=== PATIENT | female | born 1935 | race Caucasian/White ===

== ENCOUNTER 2016-11-15 16:06 | Emergency (ER) | payer OTHER ==
[~2016-11-15 16:06] MED LIST: ACETAMINOPHEN/T1 TA1; BYSTOLIC10 MG PO; CARBIDOPA-LEVO1 EAC8; CIPRO 250MG250 MG PO; DULOXETINE HCL60 MG; DULOXETINE60 MG PO; HYZAAR 12.5 MG-1 TA1 PO; LOSARTAN POTASS1 TA3 PO; LOVASTATIN40 MG PO; SUMATRIPTAN SU100 M1 PO; SUMATRIPTAN SU100 MG PO; VITAMIN D50000 IU PO
--- NOTE | 2016-11-15 16:37 | ED GENERAL ADULT ---
History of Present Illness General Chief Complaint: General Adult Stated Complaint: DECREASED URINARY OUTPUT, NO BM X 2 DAYS. Source: old records, EMS Exam Limitations: unable to give history, clinical condition Vital Signs & Intake/Output Vital Signs & Intake/Output Vital Signs Date Time Temp Pulse Resp B/P Pulse O2 O2 Flow FiO2 Ox Delivery Rate 11/15 1928 98.1 82 18 124/84 97 Room Air 11/15 1618 97.3 90 20 123/92 93 Room Air ED Intake and Output 11/16 0000 11/15 1200 Intake Total 1200 Output Total 450 Balance 750 Intake, IV 1200 Output, Urine 450 Allergies Coded Allergies: [place] And Derivatives (MIGRAINES 03/14/16) Reconcile Medications Ascorbate Calcium (Vitamin C) (Unknown Strength) TABLET (Unknown Dose) PO DAILY SUPPLEMENT (Reported) Cholecalciferol (Vitamin D3) (Vitamin D) (Unknown Strength) CAPSULE (Unknown Dose) PO DAILY SUPPLEMENT (Reported) Doxycycline Hyclate (Unknown Strength) CAPSULE (Unknown Dose) UNKNOWN ( Reported) Duloxetine HCl (Unknown Strength) CAPSULE.DR (Unknown Dose) UNKNOWN (Reported ) Losartan/Hydrochlorothiazide (Losartan-Hctz 50-12.5 MG Tab) (Unknown Strength) TABLET (Unknown Dose) UNKNOWN (Reported) Multivitamin (Multi-Day Vitamins) 1 EACH TABLET 1 TAB PO DAILY SUPPLEMENT ( Reported) Polyethylene Glycol 3350 (Miralax) 17 GRAM/DOSE POWDER 17 GM PO DAILY constipation mix with water, juice, soda, coffee or tea until stools soft and regular Sumatriptan Succinate (Unknown Strength) TABLET (Unknown Dose) UNKNOWN ( Reported) Temazepam 30 MG CAPSULE 1 CAP PO QHS SLEEP (Reported) Tramadol HCl 50 MG TABLET 1-2 TAB PO QHS PAIN (Reported) Triage Note: PT BIBA FROM HOME REQUESTED BY FAMILY SECONDARY TO NO BM X 2 DAYS AND DECREASE IN URINARY OUTPUT. Triage Nurses Notes Reviewed? yes Onset: 2 days Duration: day(s):, constant, continues in ED Timing: recent history Injury Environment: home Severity: moderate No Modifying Factors: none LMP (ages 10-50): post menopausal : No Patient currently breastfeeds: No HPI: Patient is nonverbal noncommunicative by EMS report patient resides at home with family without stool output for 2 days and decreased urine output. There is no reported fever chills nausea vomiting diarrhea abdominal pain dysuria rash headache bleeding. (GISELLE BINGHAM MD) Past History Travel History Traveled to [place] past 21 day No Medical History Any Pertinent Medical History? see below for history Neurological: dementia, SUPRANUCLEAR PALSY EENT: NONE Cardiovascular: hypertension Respiratory: NONE Gastrointestinal: NONE Hepatic: NONE Renal: urinary incontinence Musculoskeletal: NONE Psychiatric: depression Endocrine: hyponatremia Other Medical Hx: frequent falls, Contusion of Hip History of MRSA: No History of VRE: No History of CDIFF: No Tetanus Vaccine: 05/28/12 Surgical History Surgical History: knee replacement (r) Psychosocial History Who do you live with Son What is your primary language Malay Tobacco Use: Cognitive Impairment Family History Family History, If Any: MOTHER Relation not specified for: Cancer of small intestine Hx Contributory? No (GISELLE BINGHAM MD) Review of Systems Review of Systems Constitutional: Reports: no symptoms. EENTM: Reports: no symptoms. Respiratory: Reports: no symptoms. Cardiovascular: Reports: no symptoms. GI: Reports: see HPI, constipation. Genitourinary: Reports: see HPI. Musculoskeletal: Reports: no symptoms. Skin: Reports: no symptoms. Neurological/Psychological: Reports: see HPI, cognitive dysfunction. Hematologic/Endocrine: Reports: no symptoms. Immunologic/Allergic: Reports: no symptoms. All Other Systems: Reviewed and Negative (GISELLE BINGHAM MD) Physical Exam Physical Exam General Appearance: well developed/nourished, awake, mild distress Head: atraumatic, normal appearance Eyes: Bilateral: normal appearance, PERRL, EOMI. Ears, Nose, Throat: normal pharynx, normal ENT inspection Neck: normal inspection, supple, full range of motion, no midline tenderness Respiratory: normal breath sounds, chest non-tender, no respiratory distress, quiet respiration, lungs clear Cardiovascular: regular rate/rhythm, normal peripheral pulses, norml femoral pulses equa Peripheral Pulses: 4+ carotid (R), 4+ carotid (L) Gastrointestinal: normal bowel sounds, distention, tenderness (diffuse mild) Back: normal inspection Extremities: normal inspection, limited range of motion (contractures LE) Neurologic/Psych: awake, lumber puller II-XII nml as tested, disoriented x 3 Skin: intact, normal color, warm/dry Lymphatic: no anterior cervical alannah Core Measures ACS in differential dx? No CVA/TIA Diagnosis: No Severe Sepsis Present: No Septic Shock Present: No (GISELLE BINGHAM MD) Progress Differential Diagnoses I considered the following diagnoses in my evaluation of the patient: obstipation UTI dehydration Plan of Care: Orders Procedure Date/time Status Enema 11/15 1744 Active Straight Cath 11/16 1631 Active URINALYSIS 11/16 1631 Complete Laboratory Tests 11/15/16 1730: Urine Color YEL, Urine Clarity CLEAR, Urine pH 7.0, Ur Specific [place] 1.010, Urine Protein NEG, Urine Ketones NEG, Urine Nitrite NEG, Urine Bilirubin NEG, Urine Urobilinogen 0.2, Ur Leukocyte Esterase SMALL H, Ur Microscopic SEDIMENT EXAMINED, Urine RBC 3-5, Urine WBC 5-10 H, Ur Epithelial Cells MOD H, Urine Bacteria RARE H, Urine Mucus FEW, Urine Hemoglobin TRACE-LYSED, Urine Glucose NEG Diagnostic Imaging: Viewed by Me: Radiology Read. Discussed w/RAD: Radiology Read. Initial ED EKG: none Hand-Off Endorsed To: LIZANDRO JOHNS MD Endorsed Time: 1899 Pending: other (enema) (GISELLE BINGHAM MD) Departure Departure Disposition: HOME OR SELF CARE Condition: Stable Clinical Impression Primary Impression: Constipation Qualifiers: Constipation type: unspecified constipation type Qualified Code: K59.00 - Constipation, unspecified Referrals: ALBARO ÁLVAREZ,ERICKA Membreno (PCP/Family) Departure Forms: Customer Survey General Discharge Information Prescriptions: Current Visit Scripts Polyethylene Glycol 3350 (Miralax) 17 GM PO DAILY #527 GM mix with water, juice, soda, coffee or tea until stools soft and regular (GISELLE BINGHAM MD) Departure Comments pt feeling well after bowel movement... discussed with family... pt and family feels safe for discharge. close follow up advised. (LIZANDRO JOHNS MD) Critical Care Note Critical Care Note Critical Care Time: non-applicable (GISELLE BINGHAM MD)
--- NOTE | 2016-11-15 17:44 | RADIOLOGY REPORT ---
EXAMINATION: XR ABDOMEN WITH PA CHEST CLINICAL INDICATION: Abdominal distention, no bowel movements for 2 days COMPARISON: 05/03/2015 pelvic x-ray and 08/27/2015 CT scan abdomen and pelvis TECHNIQUE: 4 AP supine images of the abdomen were obtained. FINDINGS: There is mild distention of colon which contains gas and moderate to large amount of stool. There is a 10 cm soft tissue and air density projecting in the center of the pelvis which could represent distended rectum and/ or bladder. Evaluation for free intra-abdominal air is somehow limited. Chronic deformity of the left femoral head and degenerative changes of left hip joint noted. Kyphoscoliosis of the spine also present. The cardiac size is borderline enlarged seen on the imaged part of the chest. The lungs are unremarkable. IMPRESSION: Mildly distended colon which contains moderate to large amount of stool. There is suggestion of rectal fecal impaction. Clinical correlation is suggested.
[2016-11-15] MEDS ORDERED: DOXYCYCLINE HY100 M2 PO (18:06)
[2016-11-15] MEDS ORDERED: TEMAZEPAM30 M1 PO (18:07)
[2016-11-15] MEDS ORDERED: LOSARTAN-HCTZ1 EAC1 (18:09)
[2016-11-15] MEDS ORDERED: DOXYCYCLINE HY100 M2 (18:09)
[2016-11-15] MEDS ORDERED: TRAMADOL HCL50 M1 PO (18:10)
[2016-11-15] MEDS ORDERED: SUMATRIPTAN SU100 M1 (18:10)
[2016-11-15] MEDS ORDERED: VITAMIN C500 M6 PO (18:11)
[2016-11-15] MEDS ORDERED: VITAMIN D2000 UNIT PO (18:11)
[2016-11-15] MEDS ORDERED: MULTI-DAY VITA1 EACH PO (18:12)
[2016-11-15] MEDS ORDERED: MIRALAX119 GM PO ×2 (18:55→19:36)
[2016-11-15 19:29] VITALS: BP 124/84
== END 2016-11-15 20:11 ==
LOC: ERH 16:06
DX: K59.00 Constipation, unspecified (principal)
CPT/HCPCS: 74022; 81001

== ENCOUNTER 2017-03-07 16:03 | Emergency (ER) | payer OTHER ==
[~2017-03-07] VITALS: Ht 152.4 cm; Wt 45.4 kg
[~2017-03-07 16:03] MED LIST changes: +DOXYCYCLINE HY100 M2; +DOXYCYCLINE HY100 M2 PO; -DULOXETINE HCL60 MG; +DULOXETINE HCL60 MG PO; +LOSARTAN-HCTZ1 EAC1; +MIRALAX119 GM PO; +MULTI-DAY VITA1 EACH PO; +TEMAZEPAM30 M1 PO; +TRAMADOL HCL50 M1 PO; +VITAMIN C500 M6 PO; +VITAMIN D2000 UNIT PO
--- NOTE | 2017-03-07 16:26 | ED GI/GU/ABDOMINAL COMPLAINT ---
History of Present Illness General Chief Complaint: Abdominal Pain/Flank Pain Stated Complaint: NO BOWEL MOVEMENT X 7 DAYS Source: EMS Exam Limitations: dementia Vital Signs & Intake/Output Vital Signs & Intake/Output Vital Signs Date Time Temp Pulse Resp B/P B/P Pulse O2 O2 Flow FiO2 Mean Ox Delivery Rate 03/07 1957 98.9 113 18 160/97 92 03/07 1838 96.0 104 18 140/93 94 Room Air 03/07 1611 98.3 80 17 146/86 95 Room Air Allergies Coded Allergies: [place] And Derivatives (MIGRAINES 03/14/16) Reconcile Medications Ascorbate Calcium (Vitamin C) (Unknown Strength) TABLET (Unknown Dose) PO DAILY SUPPLEMENT (Reported) Cholecalciferol (Vitamin D3) (Vitamin D) (Unknown Strength) CAPSULE (Unknown Dose) PO DAILY SUPPLEMENT (Reported) Duloxetine HCl 60 MG CAPSULE.DR 1 CAP PO QPM MENTAL HEALTH (Reported) Magnesium Citrate (Citrate Of Magnesia) 300 ML SOLUTION 296 ML PO ONCE PRN CONSTIPATION Polyethylene Glycol 3350 (Miralax) 17 GRAM/DOSE POWDER 17 GM PO DAILY constipation mix with water, juice, soda, coffee or tea until stools soft and regular Sumatriptan Succinate (Unknown Strength) TABLET (Unknown Dose) PO AD PRN MIGRAINES (Reported) Temazepam 30 MG CAPSULE 1 CAP PO QHS SLEEP (Reported) Tramadol HCl 50 MG TABLET 1-2 TAB PO QHS PAIN (Reported) Triage Note: RECEIVED 82 YO FEMALE KEITH FROM HOME WITH HX OF SUPRANUCLEAR PALSY WITH REPORT OF NO BOWEL MOVEMENT X ONE WEEK. ACCORDING TO REPORT, PT REPORTED ABDOMINAL PAIN AT HOME. PT CONTRACTED WITH LIMITED VERBALIZATION. WHEN ASKED IF SHE HAS PAIN, PT POINTS TO HER ABDOMIN. . Triage Nurses Notes Reviewed? yes ? N Is pt currently ? No Duration: constant Timing: recent history Quality/Severity: moderate Severity Numbers: 5 Location: generalized abdomen Radiation: no radiation HPI: Patient is an 82-year-old female Depression, Dementia, Migraine , Headaches, HTN , Urinary incontinence, right knee replacement who is brought in by ambulance for concerns of no bowel movement 7 days. History is limited due to patient being nonverbal and demented (KAILEE LOPES) Past History Travel History Traveled to [place] past 21 day No Medical History Any Pertinent Medical History? see below for history Neurological: dementia, SUPRANUCLEAR PALSY EENT: NONE Cardiovascular: hypertension Respiratory: NONE Gastrointestinal: NONE Hepatic: NONE Renal: urinary incontinence Musculoskeletal: NONE Psychiatric: depression Endocrine: hyponatremia Other Medical Hx: frequent falls, Contusion of Hip History of MRSA: No History of VRE: No History of CDIFF: No Tetanus Vaccine: 05/28/12 Surgical History Surgical History: knee replacement (r) Psychosocial History Who do you live with Son What is your primary language Yi Tobacco Use: Cognitive Impairment Family History Family History, If Any: MOTHER Relation not specified for: Cancer of small intestine Hx Contributory? No (KAILEE LOPES) Review of Systems Review of Systems Constitutional: Reports: no symptoms. EENTM: Reports: no symptoms. Respiratory: Reports: no symptoms. Cardiovascular: Reports: no symptoms. GI: Reports: see HPI, constipation. Genitourinary: Reports: no symptoms. Musculoskeletal: Reports: no symptoms. Skin: Reports: no symptoms. Neurological/Psychological: Reports: no symptoms. Hematologic/Endocrine: Reports: no symptoms. Immunologic/Allergic: Reports: no symptoms. All Other Systems: Reviewed and Negative (KAILEE LOPES) Physical Exam Physical Exam General Appearance: no apparent distress Head: atraumatic Eyes: Bilateral: normal appearance. Ears, Nose, Throat, Mouth: moist mucous membrane Neck: normal inspection, supple Respiratory: normal breath sounds, chest non-tender, no respiratory distress Cardiovascular: regular rate/rhythm Gastrointestinal: normal bowel sounds, soft, non-tender Extremities: normal range of motion Neurologic/Psych: awake Skin: intact, normal color Core Measures ACS in differential dx? No Severe Sepsis Present: No Septic Shock Present: No (KAILEE LOPES) Progress Differential Diagnosis: AAA, AMI, appendicitis, biliary colic, bowel obstruction , colon cancer, cholecystitis, diverticulitis, endometritis, esophageal varices, gastritis, hepatitis, hernia, hemorrhoids, ischemic bowel, inflamm bowel dis, kidney stone, ovarian cyst, ovarian torsion, pancreatitis, PID/cervicitis, peptic ulcer, PUD/GERD, perforated viscous, SBO, UTI/pyelo Plan of Care: Orders Procedure Date/time Status CASE MANAGEMENT CONSULT 03/07 194 Active Straight Cath 03/07 165 Active CULTURE,URINE 03/07 165 Active URINALYSIS 03/07 1659 Complete LIPASE 03/07 1632 Complete LACTIC ACID 03/07 1632 Complete COMPREHENSIVE METABOLIC PANEL 03/07 1632 Complete CBC WITHOUT DIFFERENTIAL 03/07 1632 Complete Enema 03/07 1625 Active Laboratory Tests 03/07/17 1932: Lactic Acid Cancelled 03/07/17 1720: Urinalysis LIGHT H, Urine Color YEL, Urine Clarity CLEAR, Urine pH 6.5, Ur Specific [place] 1.010, Urine Protein NEG, Urine Ketones NEG, Urine Nitrite NEG, Urine Bilirubin NEG, Urine Urobilinogen 0.2, Ur Leukocyte Esterase TRACE H, Ur Microscopic SEDIMENT EXAMINED, Urine RBC 1-3, Urine WBC 1-3 H, Ur Epithelial Cells FEW, Urine Bacteria MOD H, Urine Mucus FEW, Urine Hemoglobin NEG, Urine Glucose NEG 03/07/17 1655: Anion Gap 7, Estimated GFR > 60, BUN/Creatinine Ratio 20.0, Glucose 86, Lactic Acid 1.1, Calcium 9.5, Total Bilirubin 0.7, AST 32, ALT 52, Alkaline Phosphatase 86, Total Protein 6.7, Albumin 4.0, Globulin 2.7, Albumin/Globulin Ratio 1.5, Lipase 32, CBC w Diff NO MAN DIFF REQ, RBC 4.15 L, MCV 92.5, MCH 30.5, RDW 15.8 H, MPV 7.5, Gran % 67.4, Lymphocytes % 27.2, Monocytes % 3.6, Eosinophils % 1.4 , Basophils % 0.4, Absolute Granulocytes 4.3, Absolute Lymphocytes 1.7, Absolute Monocytes 0.2, Absolute Eosinophils 0.1, Absolute Basophils 0, PUBS MCHC 33.0 Microbiology 03/07 1720 URINE ROUT: Urine Culture - RECD Patient had unremarkable blood work and CT scan shows concerns of fecal impaction and constipation. Patient was given soap enema and had significant bowel- (brown stool noted) movement production in the emergency room. Case management evaluated patient and will provide home health services to patient I discussed disposition plan with family members for stool softener regimen and laxatives Discussed disposition plan with who agrees \ (LILY GUPTA,KAILEE) Diagnostic Imaging: Viewed by Me: CT Scan. Radiology Impression: SEE COMMENTS Initial ED EKG: none Comments: PATIENT: DEMI MARINELLI PRESENT AGE: 82 PATIENT ACCOUNT NO: [id number] : 37 LOCATION: [facility] ORDERING PHYSICIAN: KAILEE GUPTA SERVICE DATE: 03/07/17-1631 EXAM TYPE: CAT - CT ABD & PELVIS W/O IV CONTRAS EXAMINATION: CT ABDOMEN AND PELVIS WITHOUT CONTRAST CLINICAL INFORMATION: No bowel movement for 7 days. Evaluate for a small bowel obstruction. COMPARISON: Multiple priors, most recent CT abdomen and pelvis dated 08/27/2015. TECHNIQUE: Multidetector volumetric imaging was performed from the superior aspect of the liver through the pubic symphysis. Sagittal and coronal reformatted images were obtained on the technologist's workstation. The patient's upper and lower extremities are contracted, somewhat limiting the examination. DLP: 437.56 mGy-cm FINDINGS: Evaluation of the intra-abdominal viscera is somewhat limited without IV contrast. LUNG BASES: There are bibasilar dependent atelectatic changes. LIVER, GALLBLADDER, AND BILIARY TREE: Evaluation of the liver is somewhat limited due to the adjacent upper extremity. There is no gross hepatic mass or intrahepatic biliary ductal dilatation. The gallbladder is poorly visualized. PANCREAS: Grossly unremarkable. SPLEEN: Grossly unremarkable. ADRENAL GLANDS: Poorly visualized. KIDNEYS AND URETERS: No hydronephrosis or nephrolithiasis. BLADDER: Unremarkable. GASTROINTESTINAL TRACT: No large or small bowel obstruction. Prominence stool distends the rectum measuring approximately 8.0 x 9.0 cm, consistent with fecal impaction. There is mild thickening of the rectum distal to the impacted stool. Rectal examination is recommended to help further evaluate. The appendix is not identified. No intra-abdominal free air or free fluid. ABDOMINAL WALL: No significant hernia is appreciated. LYMPH NODES: Evaluation is limited without IV contrast. VASCULAR: Atherosclerotic calcifications within the abdominal aorta and its branch vessels. No abdominal aortic dilatation. PELVIC VISCERA: The uterus is poorly visualized. OSSEOUS STRUCTURES: There are no lytic or blastic osseous lesions. There is a prominent S-shaped scoliosis of the lower thoracic and lumbar spine. 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 The upper and lower extremities are contracted. IMPRESSION: 1. Somewhat limited evaluation due to patient positioning and lack of IV contrast. 2. Prominent stool within the rectum, consistent with fecal impaction. Mild thickening of the rectum distal to the impacted stool. Rectal examination is recommended to help further evaluate. 3. No intra-abdominal free air or free fluid. 4. No hydronephrosis or nephrolithiasis. (LILY GUPTA,KAILEE) Departure Departure Disposition: HOME OR SELF CARE Condition: Stable Clinical Impression Primary Impression: Fecal impaction Referrals: IRVIN MD,ERICKA Membreno (PCP/Family) Additional Instructions: As discussed begin [id number] stool softeners of DOCULSATE as directed. Continue with the MiraLAX for bowel promotion and begin the prescription of magnesium citrate for breakthrough bowel production. If symptoms worsen return to emergency ROOM. Follow-up this week with your PRIMARY doctor. YOU will receive a phone call tomorrow for home health services evaluation prescriptions are waiting at [facility] Departure Forms: Customer Survey General Discharge Information Prescriptions: Current Visit Scripts Magnesium Citrate (Citrate Of Magnesia) 296 ML PO ONCE PRN CONSTIPATION #296 ML Ref 1 (LILY GUPTA,KAILEE) PA/EMPLOYEE DEVELOPMENT SPECIALIST Co-Sign Statement Statement: ED Attending supervision documentation- [X] I saw and evaluated the patient. I have also reviewed all the pertinent lab results and diagnostic results. I agree with the findings and the plan of care as documented in the PA's/EMPLOYEE DEVELOPMENT SPECIALIST's documentation. [] I have reviewed the ED Record and agree with the PA's/EMPLOYEE DEVELOPMENT SPECIALIST's documentation. [] Additions or exceptions (if any) to the PAs/EMPLOYEE DEVELOPMENT SPECIALIST's note and plan are summarized below: [] (JOE GONSALES DO)
[2017-03-07 17:24] LABS: ABSOLUTE BASOPHIL COUNT 0 /CUMM (0.0-0.2); ABSOLUTE EOSINOPHIL COUNT 0.1 /CUMM (0.0-0.7); ABSOLUTE GRANULOCYTE CT 4.3 /CUMM (1.4-6.5); ABSOLUTE LYMPH COUNT 1.7 /CUMM (1.2-3.4); ABSOLUTE MONOCYTE COUNT 0.2 /CUMM (0.10-0.60); BASOPHIL % 0.4 % (0.0-2.0); EOSINOPHIL % 1.4 % (0-5); GRANULOCYTE % 67.4 % (42.2-75.2); HEMATOCRIT 38.3 % (37-47); MEAN CORPUSCULAR HGB 30.5 PG (27.0-31.0); MEAN CORPUSCULAR VOLUME 92.5 FL (81.0-99.0); MEAN PLATELET VOLUME 7.5 FL (7.4-10.4); PLATELET COUNT 144 /CUMM (130-400); RBC DISTRIBUTION WIDTH 15.8 % (11.5-14.5); RED BLOOD CELL CT 4.15 /CUMM (4.20-5.40); WHITE BLOOD CELL COUNT 6.3 /CUMM (4.8-10.8)
--- NOTE | 2017-03-07 17:52 | CT SCAN REPORT ---
EXAMINATION: CT ABDOMEN AND PELVIS WITHOUT CONTRAST CLINICAL INFORMATION: No bowel movement for 7 days. Evaluate for a small bowel obstruction. COMPARISON: Multiple priors, most recent CT abdomen and pelvis dated 08/27/2015. TECHNIQUE: Multidetector volumetric imaging was performed from the superior aspect of the liver through the pubic symphysis. Sagittal and coronal reformatted images were obtained on the technologist's workstation. The patient's upper and lower extremities are contracted, somewhat limiting the examination. DLP: 437.56 mGy-cm FINDINGS: Evaluation of the intra-abdominal viscera is somewhat limited without IV contrast. LUNG BASES: There are bibasilar dependent atelectatic changes. LIVER, GALLBLADDER, AND BILIARY TREE: Evaluation of the liver is somewhat limited due to the adjacent upper extremity. There is no gross hepatic mass or intrahepatic biliary ductal dilatation. The gallbladder is poorly visualized. PANCREAS: Grossly unremarkable. SPLEEN: Grossly unremarkable. ADRENAL GLANDS: Poorly visualized. KIDNEYS AND URETERS: No hydronephrosis or nephrolithiasis. BLADDER: Unremarkable. GASTROINTESTINAL TRACT: No large or small bowel obstruction. Prominence stool distends the rectum measuring approximately 8.0 x 9.0 cm, consistent with fecal impaction. There is mild thickening of the rectum distal to the impacted stool. Rectal examination is recommended to help further evaluate. The appendix is not identified. No intra-abdominal free air or free fluid. ABDOMINAL WALL: No significant hernia is appreciated. LYMPH NODES: Evaluation is limited without IV contrast. VASCULAR: Atherosclerotic calcifications within the abdominal aorta and its branch vessels. No abdominal aortic dilatation. PELVIC VISCERA: The uterus is poorly visualized. OSSEOUS STRUCTURES: There are no lytic or blastic osseous lesions. There is a prominent S-shaped scoliosis of the lower thoracic and lumbar spine. 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 The upper and lower extremities are contracted. IMPRESSION: 1. Somewhat limited evaluation due to patient positioning and lack of IV contrast. 2. Prominent stool within the rectum, consistent with fecal impaction. Mild thickening of the rectum distal to the impacted stool. Rectal examination is recommended to help further evaluate. 3. No intra-abdominal free air or free fluid. 4. No hydronephrosis or nephrolithiasis.
[2017-03-07] MEDS ORDERED: CITRATE OF MAG300 ML PO (18:35)
[2017-03-07 19:57] VITALS: BP 160/97
== END 2017-03-07 19:22 ==
LOC: ERH 16:03
PROVIDERS: Physician Assistant
DX: K56.41 Fecal impaction (principal)
CPT/HCPCS: 74176; 81001; 87086; 87147

== ENCOUNTER 2017-11-15 19:15 | Inpatient (IN) | payer OTHER ==
[~2017-11-15] VITALS: Ht 152.4 cm; Wt 40.9 kg
[~2017-11-15 19:15] MED LIST changes: +CEFUROXIME500 MG PO; +CITRATE OF MAG300 ML PO
--- NOTE | 2017-11-15 19:20 | ED DYSPNEA/ASTHMA COMPLAINT ---
History of Present Illness General Chief Complaint: Dyspnea (COPD, CHF, Other) Stated Complaint: BIBA AMS, DIFFICULTY BREATHING Source: EMS Exam Limitations: clinical condition Vital Signs & Intake/Output Vital Signs & Intake/Output Vital Signs Date Time Temp Pulse Resp B/P B/P Pulse O2 O2 Flow FiO2 Mean Ox Delivery Rate 11/15 2300 72 16 144/87 94 Room Air 11/16 2047 94 Room Air 11/15 1917 97.0 82 18 151/85 94 Room Air Allergies Coded Allergies: Christian And Derivatives (MIGRAINES 03/14/16) Reconcile Medications Ascorbate Calcium (Vitamin C) (Unknown Strength) TABLET (Unknown Dose) PO DAILY SUPPLEMENT (Reported) Cefuroxime Axetil (Cefuroxime) 500 MG TABLET 1 TAB PO BID uti Cholecalciferol (Vitamin D3) (Vitamin D) (Unknown Strength) CAPSULE (Unknown Dose) PO DAILY SUPPLEMENT (Reported) Duloxetine HCl 60 MG CAPSULE.DR 1 CAP PO QPM MENTAL HEALTH (Reported) Magnesium Citrate (Citrate Of Magnesia) 300 ML SOLUTION 296 ML PO ONCE PRN CONSTIPATION Polyethylene Glycol 3350 (Miralax) 17 GRAM/DOSE POWDER 17 GM PO DAILY constipation mix with water, juice, soda, coffee or tea until stools soft and regular Quetiapine Fumarate 50 MG TABLET 1 TAB PO QPM SLEEP (Reported) Sumatriptan Succinate (Unknown Strength) TABLET (Unknown Dose) PO AD PRN MIGRAINES (Reported) Temazepam 30 MG CAPSULE 1 CAP PO QHS SLEEP (Reported) Tramadol HCl 50 MG TABLET 1-2 TAB PO QHS PAIN (Reported) Triage Nurses Notes Reviewed? yes Onset: Gradual Duration: hour(s): Timing: recent history Severity: moderate Activities at Onset: none Prior Episodes/Possible Cause: occasional episodes Modifying Factors: Improves With: other (better with 02). Associated Symptoms: dyspnea HPI: 82 yo woman, h/o dementia, unresponsive and bedbound at baseline, presents with dyspnea that began today. Per the medics, she had increased work of breathing, cough, upper airway secretions. 02 sat in the field of 87% room air, (pt not on room air at baseline), increased to 94% on 6l nc. No fever. She had been at her usual baseline earlier today. Past History Travel History Traveled to [place] past 21 day No Medical History Any Pertinent Medical History? see below for history Neurological: dementia, SUPRANUCLEAR PALSY EENT: NONE Cardiovascular: hypertension Respiratory: NONE Gastrointestinal: NONE Hepatic: NONE Renal: urinary incontinence Musculoskeletal: NONE Psychiatric: depression Endocrine: hyponatremia Blood Disorders: NONE Cancer(s): NONE Other Medical Hx: frequent falls, Contusion of Hip History of MRSA: No History of VRE: No History of CDIFF: No Tetanus Vaccine: 05/28/12 Surgical History Surgical History: knee replacement (r) Psychosocial History Who do you live with Son What is your primary language Urdu Family History Family History, If Any: MOTHER Relation not specified for: Cancer of small intestine Hx Contributory? No Review of Systems Review of Systems Constitutional: Reports: no symptoms. EENTM: Reports: no symptoms. Respiratory: Reports: no symptoms. Cardiovascular: Reports: no symptoms. GI: Reports: no symptoms. Genitourinary: Reports: no symptoms. Musculoskeletal: Reports: no symptoms. Skin: Reports: no symptoms. Neurological/Psychological: Reports: no symptoms. Hematologic/Endocrine: Reports: no symptoms. Immunologic/Allergic: Reports: no symptoms. All Other Systems: Reviewed and Negative Physical Exam Physical Exam General Appearance: cachetic, lethargic Head: atraumatic, normal appearance Eyes: Bilateral: normal appearance, PERRL, EOMI. Ears, Nose, Throat: dry mucosa Neck: normal inspection, supple, full range of motion Respiratory: diminished breath sounds bilaterally Cardiovascular: regular rate/rhythm Gastrointestinal: normal bowel sounds, soft, non-tender Extremities: normal inspection, normal capillary refill, normal range of motion, no edema Neurologic/Psych: no motor/sensory deficits, awake, alert, oriented x 3 Skin: intact, normal color, warm/dry Core Measures ACS in differential dx? No CVA/TIA Diagnosis No Sepsis Present: No Sepsis Focused Exam Completed? No Progress Differential Diagnosis: asthma, bronchitis, CHF, COPD, pulmonary embolism, pneumothorax Plan of Care: Orders Procedure Date/time Status Nothing by Mouth 11/16 B Active Saline Lock 11/15 2353 Active Misc Message 11/15 2353 Active ED Holding Orders 11/15 2353 Active Admit to inpatient 11/15 2353 Active Vital Signs 11/15 2353 Active Code Status 11/15 2353 Active RAPID VIRAL INFLUENZA A 11/16 2015 Complete BLOOD CULTURE 11/15 1924 Active ARTERIAL BLOOD GAS (GEN) 11/15 1921 Complete CULTURE,URINE 11/15 1920 Active BLOOD CULTURE 11/15 1920 Active URINALYSIS 11/15 1920 Complete TROPONIN LEVEL 11/15 1920 Complete LIPASE 11/15 1920 Complete HEPATIC FUNCTION PANEL 11/15 1920 Complete D-DIMER 11/15 1920 Complete CBC WITHOUT DIFFERENTIAL 11/15 1920 Complete BASIC METABOLIC PANEL 11/15 1920 Complete AMYLASE 11/15 1920 Complete EKG 11/15 1916 Active Laboratory Tests 11/15/172007: Anion Gap 7, Estimated GFR > 60, BUN/Creatinine Ratio 66.7 H, Glucose 76, Calcium 9.2, Total Bilirubin 0.6, Direct Bilirubin 0.2, AST 320 H, ALT 430 H, Alkaline Phosphatase 235 H, Troponin I < 0.01, Total Protein 6.0 L, Albumin 3.3 L, Amylase 60, Lipase 71, D-Dimer High Sensitivty 1694 H, CBC w Diff NO MAN DIFF REQ, RBC 4.21, MCV 99.6 H, MCH 33.4 H, MCHC 33.5, RDW 14.9 H, MPV 7.8, Gran % 89.0 H, Lymphocytes % 9.5 L, Monocytes % 1.3 L, Eosinophils % 0, Basophils % 0.2, Absolute Granulocytes 12.3 H, Absolute Lymphocytes 1.3, Absolute Monocytes 0.2, Absolute Eosinophils 0, Absolute Basophils 0 11/15/171951: Urine Color YEL, Urine Clarity CLEAR, Urine pH 6.0, Ur Specific [place] 1.025, Urine Protein NEG, Urine Ketones NEG, Urine Nitrite NEG, Urine Bilirubin NEG, Urine Urobilinogen 0.2, Ur Leukocyte Esterase NEG, Ur Microscopic EXAM NOT REQUIRED, Urine Hemoglobin NEG, Urine Glucose NEG 11/15/171934: pH 7.47 H, pCO2 33 L, pO2 67 L, HCO3 24, ABG O2 Sat (Measured) 93.0 L, P-50 (Temp Corrected) N, Carboxyhemoglobin 0.1 L, O2 Concentration % R/A, Temperature 97.0, Phlebotomy Draw Site RIGHT BRACHIAL Microbiology 11/15 2144 NASOPHARYN: Influenza Virus A & B Rapid Smear - COMP 11/16 2115 BLOOD: Blood Culture - RECD 11/16 2007 BLOOD: Blood Culture - RECD 11/16 1951 URINE ROUT: Urine Culture - RECD Diagnostic Imaging: Viewed by Me: Radiology Read. Discussed w/RAD: Radiology Read. Radiology Impression: PATIENT: DEMI MARINELLI PRESENT AGE: 82 PATIENT ACCOUNT NO: [id number] : 37 LOCATION: [facility] ORDERING PHYSICIAN: Thomas Wilkins MD SERVICE DATE: 11/15/17 EXAM TYPE: CAT - CT ABD & PELVIS W IV CONTRAST; CTA CHEST-PULMONARY EMBOLISM EXAMINATION: CTA CHEST CT ABDOMEN AND PELVIS WITH CONTRAST CLINICAL INFORMATION: Hypoxia. D-dimer. Elevated LFTs. COMPARISON: CT scan abdomen and pelvis 2017, chest x-ray 09/17/2017. TECHNIQUE: A noncontrast localizer was performed, followed by the administration of 75 mL Optiray [address] of the chest was then performed. Coronal and sagittal reformatted and 3-D technique MIP images of the chest were completed at the CT scanner and reviewed on the PACS workstation. No adverse effects were reported. Images were then performed through the abdomen and pelvis. Coronal and sagittal reformatted images performed at CT scanner by technologist. DLP: 388.83 mGy-cm. FINDINGS: CTA CHEST: VASCULAR: The main pulmonary artery, secondary and tertiary branches of the pulmonary artery are normally opacified with no evidence of pulmonary embolism. There is scattered vascular wall calcifications of the aorta. MEDIASTINUM: No mediastinal mass. No significant lymphadenopathy. There is no pericardial effusion. LUNGS: Emphysematous lucency of lungs. Patchy parenchymal airspace opacities at both lung bases with mild bronchiectasis and bronchial wall thickening. FLUID: There is no pericardial effusion. There is no pleural effusion. AXILLA: No significant lymphadenopathy. CT SCAN ABDOMEN PELVIS: Exam limited due to lack of fat planes. Patient was imaged with arms at the side. LIVER, GALLBLADDER, AND BILIARY TREE: The liver is normal in size, shape, and attenuation. No focal hepatic lesion or biliary ductal dilatation is present. There are scattered hypodensities in the parenchyma of liver likely small hepatic cyst. The gallbladder is unremarkable with no evidence of radiopaque gallstones, gallbladder wall thickening, or obvious pericholecystic inflammatory changes. PANCREAS: Unremarkable. SPLEEN: Unremarkable. ADRENAL GLANDS: Unremarkable. KIDNEYS AND URETERS: The kidneys are normal in size, shape, and attenuation. No hydronephrosis, hydroureter, or calculi seen. No perinephric stranding. Normal enhancement of the parenchyma of both kidneys. There are small scattered hypodensities consistent with small hepatic cyst. BLADDER: Unremarkable. GASTROINTESTINAL TRACT: There is a large collection of stool in the rectum. At the level of the hips the rectum sigmoid measures 10 cm transverse. There is a large amount of stool throughout the colon to the cecum. No dilated bowel loop. No bowel wall thickening or edema. ABDOMINAL WALL: No significant hernia is appreciated. LYMPH NODES: Normal. VASCULAR: Atherosclerotic vascular wall calcification of the aorta and iliac vessels without aneurysm. PELVIC VISCERA: The uterus is anteverted. No adnexal abnormality. OSSEOUS STRUCTURES: Multilevel degenerative spondylosis of spine with endplate spurring of the vertebrae. Levoscoliosis of lumbar spine. Marked degenerative arthropathy of the left hip with joint space narrowing and large bone spurring of the acetabulum and femoral head with subchondral cystic changes of the femoral head and acetabula. IMPRESSION: 1. No acute abnormality of the chest, abdomen or pelvis. No evidence of pulmonary embolism. 2. There is emphysematous changes of lung with scattered airspace opacities throughout the lungs. 3. Large collection of stool in the colon including at the rectum sigmoid with impaction. No acute change of bowel wall. DICTATED BY: Jean Alejandro MD DATE /TIME DICTATED:11/15/172253 GENERAL OFFICE ASSISTANT:SAMANTHA DATE/TIME TRANSCRIBED: 11/15/172253 CONFIDENTIAL, DO NOT COPY WITHOUT APPROPRIATE AUTHORIZATION. < Electronically signed in Other Vendor System> SIGNED BY: Jean Alejandro MD [id number] CXR Impression: no acute abnormality, no infiltrates, normal size heart, normal mediastinum, PATIENT: DEMI MARINELLI PRESENT AGE: 82 PATIENT ACCOUNT NO: [id number] : 37 LOCATION: [facility] ORDERING PHYSICIAN: Thomas Wilkins MD SERVICE DATE: 11/15/17 EXAM TYPE: RAD - XRY- PORTABLE CHEST XRAY EXAMINATION: XR CHEST PORTABLE CLINICAL INFORMATION: Dyspnea. COMPARISON: 05/02/2017 TECHNIQUE: Portable frontal view of the chest was obtained. FINDINGS: Rotated positioning. Cardiac and mediastinal silhouette is within normal limits. Calcification of the aortic arch. Pulmonary vascularity is normal. No evidence of focal consolidation, effusion, edema or pneumothorax. Old right distal clavicular fracture. Bilateral glenohumeral joint arthritis. Dextroconvex curvature of the thoracic spine. IMPRESSION: No evidence of acute process. DICTATED BY: Angel Boyd MD DATE/TIME DICTATED:11/15/171949 GENERAL OFFICE ASSISTANT:SAMANTHA DATE/TIME TRANSCRIBED:11/15/171949 CONFIDENTIAL, DO NOT COPY WITHOUT APPROPRIATE AUTHORIZATION. <Electronically signed in Other Vendor System> SIGNED BY: Angel Boyd MD 11/15/171957 Initial ED EKG: NSR, no acute changes. Departure Departure Disposition: STILL A PATIENT Condition: Stable Clinical Impression Primary Impression: Dehydration Secondary Impressions: Advanced dementia, Azotemia, Constipation, Elevated LFTs Referrals: Peng ÁLVAREZ,Ryan Membreno (PCP/Family) Departure Forms: Customer Survey General Discharge Information Admission Note Sp[facility] With: [facility] [place] Documentation of Exam: Documentation of any treatments & extenuating circumstances including Concerns Regarding Discharge (functional status, medication knowledge or non-compliance, living conditions, etc.) that warrant an admission rather than observation: pt with several issues at play: pre-renal azotemia/dehydration, extremely elevated lft's of uncertain etiology (likely not surgical in origin), also with advanced dementia contributing to her dehydration. pt merits iv fluids, ruq u/s, viral serologies and following clinical response. I discussed goals of care with her son who is POA. She is full code. Critical Care Note Critical Care Note Critical Care Time: non-applicable
--- NOTE | 2017-11-15 19:58 | RADIOLOGY REPORT ---
EXAMINATION: XR CHEST PORTABLE CLINICAL INFORMATION: Dyspnea. COMPARISON: 05/02/2017 TECHNIQUE: Portable frontal view of the chest was obtained. FINDINGS: Rotated positioning. Cardiac and mediastinal silhouette is within normal limits. Calcification of the aortic arch. Pulmonary vascularity is normal. No evidence of focal consolidation, effusion, edema or pneumothorax. Old right distal clavicular fracture. Bilateral glenohumeral joint arthritis. Dextroconvex curvature of the thoracic spine. IMPRESSION: No evidence of acute process.
[2017-11-15 20:21] LABS: ABSOLUTE BASOPHIL COUNT 0 /CUMM (0.0-0.2); ABSOLUTE EOSINOPHIL COUNT 0 /CUMM (0.0-0.7); ABSOLUTE GRANULOCYTE CT 12.3 /CUMM (1.4-6.5); ABSOLUTE LYMPH COUNT 1.3 /CUMM (1.2-3.4); ABSOLUTE MONOCYTE COUNT 0.2 /CUMM (0.10-0.60); BASOPHIL % 0.2 % (0.0-2.0); EOSINOPHIL % 0 % (0-5); HEMATOCRIT 41.9 % (37-47); MEAN CORPUSCULAR HGB 33.4 PG (27.0-31.0); MEAN CORPUSCULAR HGB CONC 33.5 G/DL (33.0-37.0); MEAN CORPUSCULAR VOLUME 99.6 FL (81.0-99.0); MEAN PLATELET VOLUME 7.8 FL (7.4-10.4); PLATELET COUNT 199 /CUMM (130-400); RBC DISTRIBUTION WIDTH 14.9 % (11.5-14.5); RED BLOOD CELL CT 4.21 /CUMM (4.20-5.40); WHITE BLOOD CELL COUNT 13.8 /CUMM (4.8-10.8)
[2017-11-15] MEDS ORDERED: QUETIAPINE FUMA50 M1 PO (20:58)
--- NOTE | 2017-11-15 23:28 | CT SCAN REPORT ---
EXAMINATION: CTA CHEST CT ABDOMEN AND PELVIS WITH CONTRAST CLINICAL INFORMATION: Hypoxia. D-dimer. Elevated LFTs. COMPARISON: CT scan abdomen and pelvis 10/10/2017, chest x-ray 09/17/2017. TECHNIQUE: A noncontrast localizer was performed, followed by the administration of 75 mL Optiray [address] of the chest was then performed. Coronal and sagittal reformatted and 3-D technique MIP images of the chest were completed at the CT scanner and reviewed on the PACS workstation. No adverse effects were reported. Images were then performed through the abdomen and pelvis. Coronal and sagittal reformatted images performed at CT scanner by technologist. DLP: 388.83 mGy-cm. FINDINGS: CTA CHEST: VASCULAR: The main pulmonary artery, secondary and tertiary branches of the pulmonary artery are normally opacified with no evidence of pulmonary embolism. There is scattered vascular wall calcifications of the aorta. MEDIASTINUM: No mediastinal mass. No significant lymphadenopathy. There is no pericardial effusion. LUNGS: Emphysematous lucency of lungs. Patchy parenchymal airspace opacities at both lung bases with mild bronchiectasis and bronchial wall thickening. FLUID: There is no pericardial effusion. There is no pleural effusion. AXILLA: No significant lymphadenopathy. CT SCAN ABDOMEN PELVIS: Exam limited due to lack of fat planes. Patient was imaged with arms at the side. LIVER, GALLBLADDER, AND BILIARY TREE: The liver is normal in size, shape, and attenuation. No focal hepatic lesion or biliary ductal dilatation is present. There are scattered hypodensities in the parenchyma of liver likely small hepatic cyst. The gallbladder is unremarkable with no evidence of radiopaque gallstones, gallbladder wall thickening, or obvious pericholecystic inflammatory changes. PANCREAS: Unremarkable. SPLEEN: Unremarkable. ADRENAL GLANDS: Unremarkable. KIDNEYS AND URETERS: The kidneys are normal in size, shape, and attenuation. No hydronephrosis, hydroureter, or calculi seen. No perinephric stranding. Normal enhancement of the parenchyma of both kidneys. There are small scattered hypodensities consistent with small hepatic cyst. BLADDER: Unremarkable. GASTROINTESTINAL TRACT: There is a large collection of stool in the rectum. At the level of the hips the rectum sigmoid measures 10 cm transverse. There is a large amount of stool throughout the colon to the cecum. No dilated bowel loop. No bowel wall thickening or edema. ABDOMINAL WALL: No significant hernia is appreciated. LYMPH NODES: Normal. VASCULAR: Atherosclerotic vascular wall calcification of the aorta and iliac vessels without aneurysm. PELVIC VISCERA: The uterus is anteverted. No adnexal abnormality. OSSEOUS STRUCTURES: Multilevel degenerative spondylosis of spine with endplate spurring of the vertebrae. Levoscoliosis of lumbar spine. Marked degenerative arthropathy of the left hip with joint space narrowing and large bone spurring of the acetabulum and femoral head with subchondral cystic changes of the femoral head and acetabula. IMPRESSION: 1. No acute abnormality of the chest, abdomen or pelvis. No evidence of pulmonary embolism. 2. There is emphysematous changes of lung with scattered airspace opacities throughout the lungs. 3. Large collection of stool in the colon including at the rectum sigmoid with impaction. No acute change of bowel wall.
--- NOTE | 2017-11-16 03:04 | History & Physical ---
[facility]236: General Information and HPI MD Statement: I have seen and personally examined DEMI MARINELLI and documented this H&P. The patient is a 82 year old F who presented with a patient stated chief complaint of [decrease oral intake, difficulty breathing]. Source of Information: patient, family, old records, W10 Exam Limitations: no limitations History of Present Illness: is an 82 yo lady with PMHx. of HTN (on no medications), dementia, urinary incontinance, depression, bedbound, non-verbal at baseline presented to ED after the family noticed that she has low oral intake over the last 2 days, they also noticed changes in breathing which is more difficult with chest congestion, she was prescribed z-pack 2 weeks ago by her pcp, her symptoms improved initially but now worsening, no fever reported by son and his girle friend, they noticed that she becomes more pale with frequent cough and choking with feeding attempts, no urine output over the last 24 hours and last bowel movement was 3 days ago. Patient is unable to express any symptoms. She lives with son and his girle escobar, over the last 4 years they feed her baby food, oatmeal and ensure Allergies/Medications Allergies: Coded Allergies: Woodson And Derivatives (MIGRAINES 03/14/16) Home Med list Ascorbate Calcium (Vitamin C) (Unknown Strength) TABLET (Unknown Dose) PO DAILY SUPPLEMENT (Reported) Cefuroxime Axetil (Cefuroxime) 500 MG TABLET 1 TAB PO BID uti Cholecalciferol (Vitamin D3) (Vitamin D) (Unknown Strength) CAPSULE (Unknown Dose) PO DAILY SUPPLEMENT (Reported) Duloxetine HCl 60 MG CAPSULE. 1 CAP PO QPM MENTAL HEALTH (Reported) Magnesium Citrate (Citrate Of Magnesia) 300 ML SOLUTION 296 ML PO ONCE PRN CONSTIPATION Polyethylene Glycol 3350 (Miralax) 17 GRAM/DOSE POWDER 17 GM PO DAILY constipation mix with water, juice, soda, coffee or tea until stools soft and regular Quetiapine Fumarate 50 MG TABLET 1 TAB PO QPM SLEEP (Reported) Sumatriptan Succinate (Unknown Strength) TABLET (Unknown Dose) PO AD PRN MIGRAINES (Reported) Temazepam 30 MG CAPSULE 1 CAP PO QHS SLEEP (Reported) Tramadol HCl 50 MG TABLET 1-2 TAB PO QHS PAIN (Reported) Past History Travel History Traveled to [place] past 21 day No Medical History Neurological: dementia, SUPRANUCLEAR PALSY EENT: NONE Cardiovascular: hypertension Respiratory: NONE Gastrointestinal: NONE Hepatic: NONE Renal: urinary incontinence Musculoskeletal: NONE Psychiatric: depression Endocrine: hyponatremia Blood Disorders: NONE Cancer(s): NONE Other Medical Hx: frequent falls, Contusion of Hip History of MRSA: No History of VRE: No History of CDIFF: No Tetanus Vaccine: 05/28/12 Surgical History Surgical History: knee replacement (r) Past Family/Social History Family History Relations & Conditions if any MOTHER Relation not specified for: Cancer of small intestine Review of Systems Review of Systems Constitutional: Reports: see HPI. EENTM: Reports: no symptoms. Respiratory: Reports: short of breath. GI: Reports: constipation. Genitourinary: Reports: see HPI. Musculoskeletal: Reports: no symptoms. Skin: Reports: see HPI, change in skin color. Neurological/Psychological: Reports: dementia, unable to move lower ext, weakness. Hematologic/Endocrine: Reports: no symptoms. Immunologic/Allergic: Reports: no symptoms. All Other Systems: Reviewed and Negative Exam & Diagnostic Data Last 24 Hrs of Vital Signs/I&O Vital Signs Date Time Temp Pulse Resp B/P B/P Pulse O2 O2 Flow FiO2 Mean Ox Delivery Rate 11/16 0157 76 20 146/91 95 Room Air 11/15 2300 72 16 144/87 94 Room Air 11/15 2048 94 Room Air 11/15 1918 97.0 82 18 151/85 94 Room Air Intake & Output 11/16 0800 03/ 0000 11/15 1600 Intake Total Output Total 300 Balance -300 Output, Urine 300 Patient 89 lb 15.99 oz Weight Weight Estimated Measurement Method Physical Exam General Appearance Alert Skin multiple skin break on the buttock and stage 1 bedsores Skin Temp/Moisture Exam: Warm/Excessively Dry Sepsis Skin Exam (color): Pale HEENT Atraumatic, PERRLA, EOMI Lymphatic Axillary nl, Cervical nl Cardiovascular Normal S1, Normal S2, systolic murmur high on the apex Lungs Normal Air Movement, bibasilar rhonchi Abdomen Normal Bowel Sounds, Soft Extremities No Edema, number of changes of color on the pressure area with open sore over the right medial malleolus Vascular Normal Pulses, Pulses Symmetrical Last 24 Hrs of Labs/Luisito: Laboratory Tests 11/15/17 2008: Anion Gap 7, Estimated GFR > 60, BUN/Creatinine Ratio 66.7 H, Glucose 76, Calcium 9.2, Total Bilirubin 0.6, Direct Bilirubin 0.2, AST 320 H, ALT 430 H, Alkaline Phosphatase 235 H, Troponin I < 0.01, Total Protein 6.0 L, Albumin 3.3 L, Amylase 60, Lipase 71, D-Dimer High Sensitivty 1694 H, CBC w Diff NO MAN DIFF REQ, RBC 4.21, MCV 99.6 H, MCH 33.4 H, MCHC 33.5, RDW 14.9 H, MPV 7.8, Gran % 89.0 H, Lymphocytes % 9.5 L, Monocytes % 1.3 L, Eosinophils % 0, Basophils % 0.2, Absolute Granulocytes 12.3 H, Absolute Lymphocytes 1.3, Absolute Monocytes 0.2, Absolute Eosinophils 0, Absolute Basophils 0 11/15/171951: Urine Color YEL, Urine Clarity CLEAR, Urine pH 6.0, Ur Specific [place] 1.025, Urine Protein NEG, Urine Ketones NEG, Urine Nitrite NEG, Urine Bilirubin NEG, Urine Urobilinogen 0.2, Ur Leukocyte Esterase NEG, Ur Microscopic EXAM NOT REQUIRED, Urine Hemoglobin NEG, Urine Glucose NEG 11/15/171934: pH 7.47 H, pCO2 33 L, pO2 67 L, HCO3 24, ABG O2 Sat (Measured) 93.0 L, P-50 (Temp Corrected) N, Carboxyhemoglobin 0.1 L, O2 Concentration % R/A, Temperature 97.0, Phlebotomy Draw Site RIGHT BRACHIAL Microbiology 11/15 2144 NASOPHARYN: Influenza Virus A & B Rapid Smear - COMP 11/16 2115 BLOOD: Blood Culture - RECD 11/16 2007 BLOOD: Blood Culture - RECD 11/16 1951 URINE ROUT: Urine Culture - RECD Diagnostic Data EKG Results SR, T-WAVE INVERSION ON T6, QTC 463 CXR Results IMPRESSION: No evidence of acute process. Other Results IMPRESSION: 1. No acute abnormality of the chest, abdomen or pelvis. No evidence of pulmonary embolism. 2. There is emphysematous changes of lung with scattered airspace opacities throughout the lungs. 3. Large collection of stool in the colon including at the rectum sigmoid with impaction. No acute change of bowel wall. Assessment/Plan Assessment: 82 yo lady with a history of dementia, she is bedbound and nonverbal at baseline , presented for a concern of decrease oral intake, lethargy, increase work of breathing, decrease urine output and no bowel movement for 2 days, desat down to 87% at RA, found to have leukocytosis with opacity on CT-scan with PE ruled out admitted for the following: Assessment: #Acute hypoxic respiratory failure 2/2 ?Aspiration pneumonia #Dehydration #Cachexia #Multiple 1st and 2nd degree bedsores #Transaminitis #Constipation Plan: * Admission to general medicine floor * She is a high risk of aspiration, given difficulty feeding her lately with reported choking will cover her for aspiration pneumonia with IV Unacyn * Blood Cx x2 sent by ED will F/U * Hydration with D5 1/5 NS * Official swallow eval at am * Wound care consult * Will repeat LFT, cbc, bep at am * Aggressive bowel regimen, if no bowel movement consider enema * NPO for now DVT ppx SC Lovenox Full code for now, SON who is the POA considering changing the code status to DNR/DNI but he wants his sister to see their mother before he change the code status As Ranked By This Provider Problem List: 1. Advanced dementia 2. Azotemia 3. Dehydration 4. Elevated LFTs 5. Aspiration pneumonia Core Measures/Misc (05/30) Acute Coronary Syndrome ACS Diagnosis: No Congestive Heart Failure Congestive Heart Failure Diagnosis No Cerebrovascular Accident CVA/TIA Diagnosis: No VTE (View Protocol) VTE Risk Factors Age>40 No Mechanical VTE Prophylaxis d/t N/A MechProphylax Ordered No VTE Pharm Prophylaxis d/t NA PharmProphylax ordered Sepsis (View protocol) Sepsis Present: No Beau ÁLVAREZ, [facility] 11/16/17 0640: Attending MD Review Statement Attending Statement Attending MD Statement: examined this patient, discuss w/resident/PA/GROUP FITNESS INSTRUCTOR, agreed w/resident/PA/GROUP FITNESS INSTRUCTOR, discussed with family, reviewed images, amended to note Attending Assessment/Plan: 82 yo F with advanced dementia, HTN, depression, nonverbal at baseline, bedbound , being cared for by son at home, is brought in for poor PO intake worse over the last 2-3 days, associated with increased work of breathing. O2 sats were 87% on field. Sons reports that he feeds her and she has choked on food at times. Of late, he has heard gurgling sounds in the chest. Patient eats baby food and takes a long time to eat. Son also noted that food stays in the mouth and drools from the angle of the mouth, he feels she has difficulty swallowing or initiating a swallow. She has no urine output and is constipated for the past few days. 2 weeks back, patient was treated for bronchitis/ flu with tamilfu, z-luke and medrol dose pack. Patient is currently only on 3 meds seroquel, duloxetine and temazepam. Vitals stable, sats on RA 95%. Exam: cachectic elderly lady, no responding to verbal stimuli, flutters her eyelids, has dry mucous membranes, multiple stage 1 ulcers to back/ buttock and right leg medial aspect and toes. Remaining exam as above. Labs: WBC 13.8, D-dimer 1694, bicarb 31, BUN 60, AST 320, ALT 430, Alk phos 235. UA clear. AB.47/33/67/24. CXR: no acute process. CTA chest/abd/pelvis: no PE, emphysematous changes with scattered airspace opacities throughout lungs, large stool collection in colon. EKG: sinus rhythm. Assessment and plan: 1. Hypoxia 2. Aspiration pneumonia 3. Transaminitis 4. Dehydration, failure to thrive 5. Advanced dementia 6. Buttock decubitus ulcers 7. Constipation - Admit to General medicine - Fall and aspiration precautions - NPO - IV fluids - Panculture, initiate IV Unasyn - Swallow eval when patient more awake - Trend LFTs after hydration - check tylenol levels and hepatitis panel - Wound care consult - Hold all PO meds for now, as high risk of aspiration - Dulcolax suppository, enema as needed as patient is unable to take PO - Goals of care discussion DVT ppx Lovenox. Full code. For now, son wants full code. I tried to explain to him that she is fragile, quality of life is low, resuscitation will cause broken ribs. But he wants resuscitation so that he has enough time for his sister to come in to say her goodbye. Sister lives in [place]. I also talked about her nutritional status, and feeding tube, son is realistic and may not want be inclined for feeding tubes.
[2017-11-16 05:28] LABS: ABSOLUTE BASOPHIL COUNT 0 /CUMM (0.0-0.2); ABSOLUTE EOSINOPHIL COUNT 0 /CUMM (0.0-0.7); ABSOLUTE GRANULOCYTE CT 6.5 /CUMM (1.4-6.5); ABSOLUTE MONOCYTE COUNT 0.1 /CUMM (0.10-0.60); BASOPHIL % 0.3 % (0.0-2.0); EOSINOPHIL % 0.1 % (0-5); GRANULOCYTE % 85.3 % (42.2-75.2); MEAN CORPUSCULAR HGB 33.1 PG (27.0-31.0); MEAN CORPUSCULAR HGB CONC 32.8 G/DL (33.0-37.0); MEAN CORPUSCULAR VOLUME 100.8 FL (81.0-99.0); MEAN PLATELET VOLUME 7.7 FL (7.4-10.4); PLATELET COUNT 117 /CUMM (130-400); RBC DISTRIBUTION WIDTH 14.7 % (11.5-14.5); WHITE BLOOD CELL COUNT 7.7 /CUMM (4.8-10.8)
[2017-11-16 05:39] LABS: RED BLOOD CELL CT 2.77 /CUMM (4.20-5.40)
[2017-11-16 05:40] LABS: HEMATOCRIT 27.9 % (37-47)
--- NOTE | 2017-11-16 06:40 | Admission Certification ---
Admission Certification Certification Statement - As attending physician, I certify that at the time of - admission, based on clinical presentation, severity of - symptoms, need for further diagnostic testing and - therapeutic interventions, and risk of adverse outcomes - without in-hospital treatment, in my clinical assessment, - this patient requires an acute hospital stay for a minimum - of two nights or longer. I have also considered psychsocial - factors such as support system, advanced age, financial - issues, cognitive issues, and failed out-patient treatments, - past re-admission history, safety of patient, and lack of - compliance as applicable. Specific rationale supporting this admission is: Advanced dementia, hypoxia, aspiration pneumonia, transaminitis.
--- NOTE | 2017-11-16 09:23 | Event Note ---
Event Note Event Note: Sarah is a 82-year-old female bedbound nonverbal with significant history of dementia, urinary incontinence, supranuclear palsy admitted to general medicine floor yesterday with profound dehydration and concerns of aspiration pneumonia. After a liter of hydration her labs improved with white count 13-->7.7, BUN 60 - -> 42, transaminitis 320/430 --> 132/214. She became acutely hyponatremic from 143-->131. She started on IV Unasyn for suspected aspiration pneumonia and maintained on D5 normal saline. Wednesday she developed hyperlipidemia. 94.4 and subsequently placed on snow hugger in ER for several hours. Despite increasing the temperature with snow hugger her temperatures remained on the lower side with minimal improvement. Family meeting was held in ER with son Radha Mckeon Informed that she is doing poorly and there is a chance that she could further decline. Considering her overall picture including cachexia with BMI of 15, poor nutritional status, advanced dementia, baseline functional status, informed that we are concerned about her prognosis. We also offered various options including DNR/DNI, comfort measures, hospice. Family wants to choose full code for now, wants to proceed with aggressive treatment for the next 24-48 hours. Despite aggressive measures if she continues to decline, they want to choose home hospice. He wants to discuss further with his sister to make more decisions about her CODE STATUS and let us know if there are any further changes.
--- NOTE | 2017-11-16 11:34 | PN- Att Addend ---
Attending Addendum Attending Brief Note Patient seen and examined, cachectic looking and not able to communicate at all. She is nonverbal. Vital Signs Date Time Temp Pulse Resp B/P B/P Pulse O2 O2 Flow FiO2 Mean Ox Delivery Rate 11/16 1104 94.4 53 18 130/83 94 11/16 1103 94 Room Air 11/16 0746 94.3 71 22 139/86 95 Room Air 11/16 0521 93.7 59 20 141/93 95 Room Air 11/16 0157 76 20 146/91 95 Room Air 11/15 2300 72 16 144/87 94 Room Air 11/15 2048 94 Room Air 11/15 1918 97.0 82 18 151/85 94 Room Air on exam; awake, non verbal. not able to communicate. cv; s1,s2, rrr resp; Decresaed bs overall. abd; soft, nt, bs+ ext; no edema. Laboratory Tests 11/16 Chemistry Sodium (137 - 145 mmol/L) 131 L 143 Potassium (3.5 - 5.1 mmol/L) 3.5 4.8 Chloride (98 - 107 mmol/L) 108 H 105 Carbon Dioxide (22 - 30 mmol/L) 21 L 31 H Anion Gap (5 - 16) 2 L 7 BUN (7 - 17 mg/dL) 42 H 60 H Creatinine (0.5 - 1.0 mg/dL) 0.4 L 0.9 Estimated GFR (>60 ml/min) > 60 > 60 BUN/Creatinine Ratio (7 - 25 %) 105.0 H 66.7 H Glucose (65 - 99 mg/dL) 76 Serum Osmolality (285 - 295 MOSM/KG) Pending Calcium (8.4 - 10.2 mg/dL) 9.2 Total Bilirubin (0.2 - 1.3 mg/dL) 0.4 0.6 Direct Bilirubin (< 0.4 mg/dL) 0.3 0.2 AST (14 - 36 U/L) 132 H 320 H ALT (9 - 52 U/L) 214 H 430 H Alkaline Phosphatase (<127 U/L) 107 235 H Troponin I (< 0.11 ng/ml) < 0.01 Total Protein (6.3 - 8.2 g/dL) 3.3 L 6.0 L Albumin (3.5 - 5.0 g/dL) 1.6 L 3.3 L Amylase (30 - 110 U/L) 60 Lipase (23 - 300 U/L) 71 Coagulation D-Dimer High Sensitivty (0 - 243 ng/ml) 1694 H Hematology CBC w Diff MAN DIFF ORDERED NO MAN DIFF REQ WBC (4.8 - 10.8 /CUMM) 7.7 13.8 H RBC (4.20 - 5.40 /CUMM) 2.77 L 4.21 Hgb (12.0 - 16.0 G/DL) 9.2 L 14.1 Hct (37 - 47 %) 27.9 L 41.9 MCV (81.0 - 99.0 FL) 100.8 H 99.6 H MCH (27.0 - 31.0 PG) 33.1 H 33.4 H MCHC (33.0 - 37.0 G/DL) 32.8 L 33.5 RDW (11.5 - 14.5 %) 14.7 H 14.9 H Plt Count (130 - 400 /CUMM) 117 L 199 MPV (7.4 - 10.4 FL) 7.7 7.8 Gran % (42.2 - 75.2 %) 85.3 H 89.0 H Lymphocytes % (20.5 - 51.1 %) 12.8 L 9.5 L Monocytes % (1.7 - 9.3 %) 1.5 L 1.3 L Eosinophils % (0 - 5 %) 0.1 0 Basophils % (0.0 - 2.0 %) 0.3 0.2 Absolute Granulocytes (1.4 - 6.5 /CUMM) 6.5 12.3 H Segmented Neutrophils (42.2 - 75.2 %) 83 H Absolute Lymphocytes (1.2 - 3.4 /CUMM) 1.0 L 1.3 Lymphocytes (20.5 - 51.1 %) 17 L Absolute Monocytes (0.10 - 0.60 /CUMM) 0.1 0.2 Absolute Eosinophils (0.0 - 0.7 /CUMM) 0 0 Absolute Basophils (0.0 - 0.2 /CUMM) 0 0 Platelet Estimate (ADEQUATE) ADEQUATE Hypochromic-Microcytic 1+ Poikilocytosis 2+ Ovalocytes 1+ [place] Cells 1+ Elliptocytes FEW Other Body Source Fld Total RBCs Counted (%) 100 03/05 03/05 1952 1952 Urines Urine Color (YEL,AMB,STR) YEL Urine Clarity (CLEAR) CLEAR Urine pH (5.0 - 8.0) 6.0 Ur Specific [place] (1.001 - 1.035) 1.025 Urine Protein (NEG,<30 MG/DL) NEG Urine Ketones (NEG) NEG Urine Nitrite (NEG) NEG Urine Bilirubin (NEG) NEG Urine Urobilinogen (0.1 - 1.0 EU/dl) 0.2 Ur Leukocyte Esterase (NEG) NEG Ur Microscopic EXAM NOT REQUIRED Urine Hemoglobin (NEG) NEG Urine Osmolality Pending Ur Random Creatinine Pending Ur Random Sodium Pending Ur Random Potassium Pending Fraction Sodium Excret Pending Urine Glucose (N MG/DL) NEG 11/15 1934 Blood Gas pH (7.35 - 7.45 PH) 7.47 H pCO2 (35 - 45 TORR) 33 L pO2 (80 - 100 TORR) 67 L HCO3 (21 - 28 MEQ/L) 24 ABG O2 Sat (Measured) (>96.0 %) 93.0 L P-50 (Temp Corrected) N Carboxyhemoglobin (1.5 - 5.0 %) 0.1 L O2 Concentration % R/A Temperature (97.0 - 100.0 FARH) 97.0 Miscellaneous Phlebotomy Draw Site RIGHT BRACHIAL A/P; 82 y/o F with pmh sig for HTN (on no medications), dementia, urinary incontinance, depression, bedbound, non-verbal at baseline admitted with dehydration, decreased by mouth intake, some shortness of breath with a question of aspiration pneumonia. BUN improving. Sodium has dropped. Please change IV fluids to D5NS. Also noted a drop in H&H. Patient likely was hemoconcentrated on admission. After receiving fluids on the cell lines have dropped. We will check her stool for guaiac. Patient currently nothing by mouth and swallow evaluation is ordered. She should be on a bowel regimen. She might require disimpaction. DVT prophylaxis: Lovenox. D/W patient's son, wants mother to remain a full code for now and wait for another 24 hours.
[2017-11-17] VITALS: BP 130/90
[2017-11-17 05:01] LABS: ABSOLUTE BASOPHIL COUNT 0 /CUMM (0.0-0.2); ABSOLUTE EOSINOPHIL COUNT 0 /CUMM (0.0-0.7); ABSOLUTE GRANULOCYTE CT 5.1 /CUMM (1.4-6.5); ABSOLUTE LYMPH COUNT 1.5 /CUMM (1.2-3.4); ABSOLUTE MONOCYTE COUNT 0.2 /CUMM (0.10-0.60); BASOPHIL % 0.3 % (0.0-2.0); EOSINOPHIL % 0.1 % (0-5); GRANULOCYTE % 74.2 % (42.2-75.2); HEMATOCRIT 29.9 % (37-47); MEAN CORPUSCULAR HGB CONC 34.1 G/DL (33.0-37.0); MEAN CORPUSCULAR VOLUME 99.7 FL (81.0-99.0); MEAN PLATELET VOLUME 7.9 FL (7.4-10.4); PLATELET COUNT 155 /CUMM (130-400); RBC DISTRIBUTION WIDTH 15.2 % (11.5-14.5); RED BLOOD CELL CT 2.99 /CUMM (4.20-5.40); WHITE BLOOD CELL COUNT 6.9 /CUMM (4.8-10.8)
--- NOTE | 2017-11-17 07:55 | PN- Resident CRCU ---
Subjective HPI/CRCU Issues: Patient has been seen and examined. She is nonverbal at baseline and is unable to communicate. Patient was transferred to ICU overnight for management of hypothermia, which has reolved She has not required snow hugger since arrival to ICU and will be downgraded to general medicine floor Objective Vital Signs & I&O Last 8 Hrs of Vitals and I&O: Vital Signs Date Time Temp Pulse Resp B/P B/P Pulse O2 O2 Flow FiO2 Mean Ox Delivery Rate 11/18 799 97.4 64 20 122/80 100 Nasal 1.0L Cannula 11/17 08 98 Nasal 1.0L Cannula 11/17 0400 98 Nasal 1.0L Cannula 11/17 0000 99 Nasal 1.0L Cannula 11/17 0000 95.9 68 18 130/90 99 Nasal 1.0L Cannula 11/169 94 Nasal 1.0L Cannula 11/16 203 Nasal 1.0L Cannula 11/16 2000 95 Nasal 1.0L Cannula 11/16 1937 Nasal 1.0L Cannula 11/16 1844 96.8 73 17 132/88 97 Nasal 1.0L Cannula 11/16 1743 96.5 11/16 1722 96.2 11/16 1548 95.3 70 19 123/76 98 Nasal 1.0L Cannula 11/16 1435 94.5 Intake & Output 11/17 1600 11/17 0800 11/17 0000 Intake Total 587 159 Output Total 200 400 Balance 387 -241 Intake, IV 587 159 Intake, Oral 0 0 Number 3 1 Bowel Movements Output, Urine 200 400 Patient 75 lb 4.01 oz 75 lb 4.01 oz Weight Weight Bed scale Bed scale Measurement Method Exam General Appearance: cachetic Head: atraumatic Neck: normal inspection Respiratory: normal breath sounds Cardiovascular: regular rate/rhythm Gastrointestinal: soft Extremities: normal inspection Current Medications: Current Medications Sig/Lilliam Start time Last Medication Dose Route Stop Time Status Admin Albuterol Sulfate 3 ML Q4P PRN 11/16 2045 AC INH Ampicillin Sodium/ 1,500 MG Q12H 11/16 1200 AC /07 Sulbactam Sodium IV 1210 Sodium Chloride 100 ML Bisacodyl 10 MG Q12P PRN 11/16 1045 AC WI Dextrose/Sodium 1,000 ML Q13H / 1200 AC 03/07 Chloride IV 0454 Duloxetine HCl 60 MG QPM 11/16 2200 AC PO Enoxaparin Sodium 40 MG DAILY 11/16 1000 AC 11/17 [place] 0939 Quetiapine Fumarate 50 MG QPM 11/16 2200 AC PO Senna/Docusate Sodium 1 TAB BID 11/16 1039 AC PO Temazepam 30 MG AT BEDTIME PRN 11/16 0100 AC PO Impression/Plan Impression/Problem List Impression: The patient is a 82-year-old female with past medical history of dementia, urinary incontinence, depression, she is bedbound nonverbal at baseline. She presented to [facility] for poor oral for past 2 days and she was reported to having coughing and choking episodes with feeding attempts. Patient has had no urine output no bowel movement for past few days. On presentation patient was found to have leukocytosis, with a CTA showing emphysematous changes with scattered airspace opacities throughout the lungs. Labs were also positive for elevated BUN and transaminitis She was in ER as general medicine hold, where she was found to be hypothermic and she was transferred to ICU for management of hypothermia She is being treated and evaluated for following conditions #Aspiration pneumonia Patient presented with leukocytosis and CTA positive for patchy parenchymal airspace opacities at both lung bases. She was reportedly having coughing and choking episodes with feeding attempts and was being maintained on pured/baby floor. It is likely that patient might have aspirated -Continue to monitor fever and WBC curve -Continue IV Unasyn -Leukocytosis is trending down to normal improving 2/2 to abx vs dilution #Hypothermia Patient was transferred to ICU overnight for management of hypothermia, which has reolved She has not required snow hugger since arrival to ICU -Continue to monitor #Dehydration/cachexia/failure to thrive Patient has failed swallow evaluation and will be kept nothing by mouth. She is being fed baby food at home and is likely aspirating, her prognosis appears guarded -Swallow evaluation with the family in the morning as per their request -NG tube vs PEG?? #Transaminitis Likely secondary to infectious process and dehydration -Improving Continue to monitor #Constipation -Bowel regemin #Buttock decubitus ulcers -wound cousult and wound care FC- goals of care need to address DVT prophylaxis with Lovenox Nothing by mouth continue D5 half normal saline Problem List: 1. Aspiration pneumonia Pain Ratin Tomorrow's Labs & Rationales: cbc bep Plan DVT/Prophylaxis: pharmacological
[2017-11-17 08:00] VITALS: BP 122/80
--- NOTE | 2017-11-17 11:19 | PN- Att Addend ---
Attending Addendum Attending Brief Note Patient seen and examined, she is nonverbal and not able to communicate. Hypothermia has resolved but patient failed swallow evaluation. Vital Signs Date Time Temp Pulse Resp B/P B/P Pulse O2 O2 Flow FiO2 Mean Ox Delivery Rate 11/18 799 97.4 64 20 122/80 100 Nasal 1.0L Cannula 11/17 0800 98 Nasal 1.0L Cannula 11/17 0400 98 Nasal 1.0L Cannula 11/17 0000 99 Nasal 1.0L Cannula 11/17 0000 95.9 68 18 130/90 99 Nasal 1.0L Cannula 11/16 2039 94 Nasal 1.0L Cannula 11/16 203 Nasal 1.0L Cannula 11/16 2000 95 Nasal 1.0L Cannula 11/16 1937 Nasal 1.0L Cannula 11/16 1844 96.8 73 17 132/88 97 Nasal 1.0L Cannula 11/16 1743 96.5 11/16 1722 96.2 11/16 1548 95.3 70 19 123/76 98 Nasal 1.0L Cannula 11/16 1435 94.5 11/16 1104 94.4 53 18 130/83 94 11/16 1103 94 Room Air On exam; awake, non verbel. cachectic looking. cv; s1, s2, rrr, + diatolic murmur. resp; decreased bs overall. abd; soft, nt, bs+ ext; no edema Laboratory Tests 11/17 11/17 0945 0945 Urines Urine Color (YEL,AMB,STR) YEL Urine Clarity (CLEAR) CLEAR Urine pH (5.0 - 8.0) 6.0 Ur Specific [place] (1.001 - 1.035) 1.025 Urine Protein (NEG,<30 MG/DL) NEG Urine Ketones (NEG) NEG Urine Nitrite (NEG) NEG Urine Bilirubin (NEG) NEG Urine Urobilinogen (0.1 - 1.0 EU/dl) 0.2 Ur Leukocyte Esterase (NEG) NEG Ur Microscopic EXAM NOT REQUIRED Urine Hemoglobin (NEG) NEG Ur Random Creatinine Pending Ur Random Sodium Pending Ur Random Potassium Pending Fraction Sodium Excret Pending Urine Glucose (N MG/DL) NEG 11/17 Chemistry Sodium (137 - 145 mmol/L) 144 142 143 Potassium (3.5 - 5.1 mmol/L) 4.3 4.0 3.9 Chloride (98 - 107 mmol/L) 112 H 108 H 111 H Carbon Dioxide (22 - 30 mmol/L) 26 27 26 Anion Gap (5 - 16) 7 7 6 BUN (7 - 17 mg/dL) 52 H 55 H 52 H Creatinine (0.5 - 1.0 mg/dL) 0.5 0.6 0.7 Estimated GFR (>60 ml/min) > 60 > 60 > 60 BUN/Creatinine Ratio (7 - 25 %) 74.3 H Glucose (65 - 99 mg/dL) 84 99 Calcium (8.4 - 10.2 mg/dL) 8.2 L 8.5 Phosphorus (2.5 - 4.5 mg/dL) 3.4 3.8 Magnesium (1.6 - 2.3 mg/dL) 2.3 2.3 Total Bilirubin (0.2 - 1.3 mg/dL) 0.7 0.5 AST (14 - 36 U/L) 361 H 190 H ALT (9 - 52 U/L) 368 H 323 H Alkaline Phosphatase (<127 U/L) 189 H Albumin (3.5 - 5.0 g/dL) 2.6 L 2.8 L Vitamin B12 (239 - 931 pg/mL) Pending Folate (2.76 - 20.0 ng/mL) Pending Hematology CBC w Diff NO MAN DIFF REQ WBC (4.8 - 10.8 /CUMM) 6.9 RBC (4.20 - 5.40 /CUMM) 2.99 L Hgb (12.0 - 16.0 G/DL) 10.2 L Hct (37 - 47 %) 29.9 L MCV (81.0 - 99.0 FL) 99.7 H MCH (27.0 - 31.0 PG) 34.0 H MCHC (33.0 - 37.0 G/DL) 34.1 RDW (11.5 - 14.5 %) 15.2 H Plt Count (130 - 400 /CUMM) 155 MPV (7.4 - 10.4 FL) 7.9 Gran % (42.2 - 75.2 %) 74.2 Lymphocytes % (20.5 - 51.1 %) 22.1 Monocytes % (1.7 - 9.3 %) 3.3 Eosinophils % (0 - 5 %) 0.1 Basophils % (0.0 - 2.0 %) 0.3 Absolute Granulocytes (1.4 - 6.5 /CUMM) 5.1 Absolute Lymphocytes (1.2 - 3.4 /CUMM) 1.5 Absolute Monocytes (0.10 - 0.60 /CUMM) 0.2 Absolute Eosinophils (0.0 - 0.7 /CUMM) 0 Absolute Basophils (0.0 - 0.2 /CUMM) 0 A/P: 82 y/o F with pmh sig for HTN (on no medications), dementia, urinary incontinance, depression, bedbound, non-verbal at baseline admitted with dehydration, decreased by mouth intake, some shortness of breath with a question of aspiration pneumonia. Patient was hypothermic yesterday and required warming blanket. Hypothermia has resolved. Cardiac enzymes are again worse today and she is having transaminitis. We'll obtain the ultrasound. Continue antibiotics for now and IV fluids. Patient has failed swallow eval and will be re evaluated tomorrow. I spoke with patient's son who wants to be present at the time of swallow evaluation. If patient continues to fail swallow evaluation then goals of care will need to be discussed again with the patient's son. DVt px; lovenox.
--- NOTE | 2017-11-17 13:26 | ULTRASOUND REPORT ---
EXAMINATION: US ABDOMEN LIMITED CLINICAL INFORMATION: Transaminitis, elevated AST, ALT. COMPARISON: CT scan of the abdomen and pelvis dated 10/10/2017. TECHNIQUE: Real-time imaging of the right upper quadrant abdominal viscera. FINDINGS: PANCREAS: Visualized portions of the pancreas are unremarkable.. LIVER: Normal. The liver demonstrates normal size, contour and echogenicity. No focal lesion or intrahepatic biliary duct dilatation. GALLBLADDER: Normal. The gallbladder is physiologically distended without evidence of stones, sludge, polyps, wall thickening or pericholecystic fluid. COMMON BILE DUCT: Normal in caliber measuring 0.5 cm in diameter. RIGHT KIDNEY: There are 2 echogenic foci measuring 4 mm in the lower pole the right kidney and 4 mm in the mid right kidney, which are not present on the CT study of 10/10/2017, however the sonographic morphology is suggestive of nonobstructing renal calculi. No hydronephrosis. No renal calculi or focal parenchymal lesions. The kidney measures 9.5 cm in maximum dimension. FREE FLUID: None. IMPRESSION: Findings suggestive of interval development of multiple nonobstructing 4 mm calculi present in the mid and lower poles of the right kidney.
[2017-11-17 16:00] VITALS: BP 140/64
[2017-11-17 16:50] LABS: ABSOLUTE BASOPHIL COUNT 0 /CUMM (0.0-0.2); ABSOLUTE EOSINOPHIL COUNT 0 /CUMM (0.0-0.7); ABSOLUTE GRANULOCYTE CT 5.1 /CUMM (1.4-6.5); ABSOLUTE LYMPH COUNT 1.1 /CUMM (1.2-3.4); ABSOLUTE MONOCYTE COUNT 0.2 /CUMM (0.10-0.60); BASOPHIL % 0.2 % (0.0-2.0); EOSINOPHIL % 0 % (0-5); GRANULOCYTE % 79.4 % (42.2-75.2); HEMATOCRIT 33.3 % (37-47); MEAN CORPUSCULAR HGB 33.9 PG (27.0-31.0); MEAN CORPUSCULAR HGB CONC 33.9 G/DL (33.0-37.0); MEAN CORPUSCULAR VOLUME 99.8 FL (81.0-99.0); MEAN PLATELET VOLUME 7.6 FL (7.4-10.4); PLATELET COUNT 155 /CUMM (130-400); RED BLOOD CELL CT 3.33 /CUMM (4.20-5.40); WHITE BLOOD CELL COUNT 6.4 /CUMM (4.8-10.8)
[2017-11-17 23:00] VITALS: BP 128/64
[2017-11-18 03:54] LABS: ABSOLUTE BASOPHIL COUNT 0 /CUMM (0.0-0.2); ABSOLUTE EOSINOPHIL COUNT 0 /CUMM (0.0-0.7); ABSOLUTE GRANULOCYTE CT 3.5 /CUMM (1.4-6.5); ABSOLUTE LYMPH COUNT 1.2 /CUMM (1.2-3.4); ABSOLUTE MONOCYTE COUNT 0.2 /CUMM (0.10-0.60); BASOPHIL % 0.2 % (0.0-2.0); EOSINOPHIL % 0.1 % (0-5); MEAN CORPUSCULAR HGB 33.8 PG (27.0-31.0); MEAN CORPUSCULAR VOLUME 99.3 FL (81.0-99.0); MEAN PLATELET VOLUME 7.5 FL (7.4-10.4); PLATELET COUNT 129 /CUMM (130-400); RED BLOOD CELL CT 3.02 /CUMM (4.20-5.40); WHITE BLOOD CELL COUNT 4.9 /CUMM (4.8-10.8)
[2017-11-18 07:00] VITALS: BP 128/74
--- NOTE | 2017-11-18 07:41 | PN- Housestaff ---
Barry ÁLVAREZ,[facility] 11/18/17 0740: Subjective Follow-up For: Failure to thrive Aspiration pneumonia Subjective: Patient seen and examined. She is nonverbal at And bedbound. Clinically deteriorating. Patient has failed swallow eval today as well. Today swallow eval was done in front of family. Family members still on fence regarding CODE STATUS. Prognosis remains guarded, poor quality of life. Review of Systems Constitutional: Reports: see HPI. Objective Last 24 Hrs of Vital Signs/I&O Vital Signs Date Time Temp Pulse Resp B/P B/P Pulse O2 O2 Flow FiO2 Mean Ox Delivery Rate 11/19 799 94 Nasal 1.0L Cannula 11/18 08 97.6 68 20 124/68 94 Nasal 1.0L Cannula 11/18 0700 97.0 65 24 128/74 98 Nasal 1.0L Cannula 11/18 0000 98 Nasal 1.0L Cannula 11/17 2300 97.6 68 21 128/64 98 Nasal 1.0L Cannula 11/17 1636 99 Nasal 1.0L Cannula 11/17 1600 97.4 71 19 140/64 99 Nasal 1.0L Cannula 11/17 1600 96 Nasal 1.0L Cannula 11/17 1416 96 Nasal 1.0L Cannula Intake & Output 11/18 1600 11/18 0800 11/18 0000 Intake Total 625 650 Output Total 290 275 Balance 335 375 Intake, IV 625 600 Intake, Oral 50 Number 1 Bowel Movements Output, Urine 290 275 Patient 87 lb Weight Physical Exam General Appearance: cachectic HEENT: Atraumatic Cardiovascular: Normal S1, Normal S2 Lungs: Clear to Auscultation Abdomen: Normal Bowel Sounds, Soft, No Tenderness Current Medications: Current Medications Sig/Lilliam Start time Last Medication Dose Route Stop Time Status Admin Albuterol Sulfate 3 ML Q4P PRN / 2045 AC INH Ampicillin Sodium/ 1,500 MG Q12H / 1200 AC / Sulbactam Sodium IV 2308 Sodium Chloride 100 ML Bisacodyl 10 MG Q12P PRN / 1045 AC VT Dextrose/Lactated 1,000 ML Q13H 11/18 0800 DC / Ringer's IV 0830 Dextrose/Sodium 1,000 ML Q13H / 0930 AC / Chloride IV 0941 Dextrose/Sodium 1,000 ML Q13H 11/17 1730 DC 11/18 Chloride IV 0517 Dextrose/Sodium 1,000 ML Q13H 11/16 1200 DC 11/17 Chloride IV 1406 Duloxetine HCl 60 MG QPM 11/16 2200 AC 11/17 PO 2158 Enoxaparin Sodium 40 MG DAILY 11/16 1000 AC 11/18 SC 0830 Quetiapine Fumarate 50 MG QPM 11/16 2200 AC 11/17 PO 2158 Scopolamine HBr 1 PAT ONE ONE 11/17 2215 DC 11/17 TOP 11/17 2216 2308 Senna/Docusate Sodium 1 TAB BID 11/16 1039 AC 11/17 PO 2158 Temazepam 30 MG AT BEDTIME PRN 11/16 0100 AC PO Last 24 Hrs of Lab/Luisito Results Last 24 Hrs of Labs/Mics: Laboratory Tests 11/18/17 0320: Anion Gap 5, Estimated GFR > 60, Glucose 87, Calcium 8.4, Phosphorus 2.6, Magnesium 2.1, Total Bilirubin 0.5, AST 332 H, ALT 378 H, Albumin 2.6 L, CBC w Diff NO MAN DIFF REQ, RBC 3.02 L, MCV 99.3 H, MCH 33.8 H, MCHC 34.0, RDW 15.0 H, MPV 7.5, Gran % 71.0, Lymphocytes % 25.2, Monocytes % 3.5, Eosinophils % 0.1, Basophils % 0.2, Absolute Granulocytes 3.5, Absolute Lymphocytes 1.2, Absolute Monocytes 0.2, Absolute Eosinophils 0, Absolute Basophils 0 11/17/17 1623: Anion Gap 5, Estimated GFR > 60, Glucose 81, Calcium 8.5, Phosphorus 3.0, Magnesium 2.2, Total Bilirubin 0.5, AST 400 H, ALT 426 H, Albumin 2.7 L, CBC w Diff NO MAN DIFF REQ, RBC 3.33 L, MCV 99.8 H, MCH 33.9 H, MCHC 33.9, RDW 15.0 H, MPV 7.6, Gran % 79.4 H, Lymphocytes % 17.4 L, Monocytes % 3.0, Eosinophils % 0, Basophils % 0.2, Absolute Granulocytes 5.1, Absolute Lymphocytes 1.1 L, Absolute Monocytes 0.2, Absolute Eosinophils 0, Absolute Basophils 0 11/17/17 1357: Troponin I Cancelled Assessment/Plan Assessment: The patient is a 82-year-old female with past medical history of dementia, urinary incontinence, depression, she is bedbound nonverbal at baseline. She presented to [facility] for poor oral for past 2 days and she was reported to having coughing and choking episodes with feeding attempts. Patient has had no urine output no bowel movement for past few days. On presentation patient was found to have leukocytosis, with a CTA showing emphysematous changes with scattered airspace opacities throughout the lungs. Labs were also positive for elevated BUN and transaminitis She was in ER as general medicine hold, where she was found to be hypothermic and she was transferred to ICU for management of hypothermia--she has been downgraded to general medicine floor and currently remains in ICU as gen [facility] hold She is being treated and evaluated for following conditions #Aspiration pneumonia Patient presented with leukocytosis and CTA positive for patchy parenchymal airspace opacities at both lung bases. She was reportedly having coughing and choking episodes with feeding attempts and was being maintained on pured/baby floor. It is likely that patient might have aspirated -Continue to monitor fever and WBC curve -Continue IV Unasyn -Leukocytosis is trending down to normal improving 2/2 to abx vs dilution #Hypothermia-resolved Patient was transferred to ICU overnight for management of hypothermia, which has reolved She has not required snow hugger since arrival to ICU -Continue to monitor #Dehydration/cachexia/failure to thrive/ protein calorie malnutrition Patient has failed swallow evaluation and will be kept nothing by mouth. She is being fed baby food at home and is likely aspirating, her prognosis appears guarded -Swallow evaluation with the family, pt has failed again -NG tube vs PEG?? No overall benefit, explained to the family #Transaminitis Likely secondary to infectious process and dehydration -Improving Continue to monitor #Hypernatremia -Fluids have been changed to D5 half normal saline continue to monitor #Constipation -Bowel regemin #Buttock decubitus ulcers -wound cousult and wound care FC- goals of care need to address, detailed discussion with the family DVT prophylaxis with Lovenox Nothing by mouth continue D5 half normal saline Problem List: 1. Aspiration pneumonia Pain Ratin Pain Location: n/a Pain Goal: Remain pain free Pain Plan: prn Tomorrow's Labs & Rationales: cbc bep Ramesh ÁLVAREZ,Aundrea 11/18/17 1117: Attending MD Review Statement Attending Statement Attending MD Statement: examined this patient, discuss w/resident/PA/SEWING ROOM SUPERVISOR, agreed w/resident/PA/SEWING ROOM SUPERVISOR, discussed with family, reviewed EMR data (avail), discussed with nursing, discussed with case mgmt, reviewed images, amended to note Attending Assessment/Plan: Patient seen and examined, she remains nonverbal. This is her baseline. She has very advanced dementia. Patient is admitted with possible aspiration pneumonia and has decub ulcers present on admission. Vital Signs Date Time Temp Pulse Resp B/P B/P Pulse O2 O2 Flow FiO2 Mean Ox Delivery Rate 11/19 799 94 Nasal 1.0L Cannula 11/18 08 97.6 68 20 124/68 94 Nasal 1.0L Cannula 11/18 0700 97.0 65 24 128/74 98 Nasal 1.0L Cannula 11/18 0000 98 Nasal 1.0L Cannula 11/17 2300 97.6 68 21 128/64 98 Nasal 1.0L Cannula 11/17 1636 99 Nasal 1.0L Cannula 11/17 1600 97.4 71 19 140/64 99 Nasal 1.0L Cannula 11/17 1600 96 Nasal 1.0L Cannula 11/17 1416 96 Nasal 1.0L Cannula on exam; awake, non verbel, nad. cv; s1,s2, rrr, + murmur. resp; decreased bs overall. abd; soft, nt. ext; 1+ edema. Laboratory Tests 11/18 11/17 0320 1623 Chemistry Sodium (137 - 145 mmol/L) 147 H 146 H Potassium (3.5 - 5.1 mmol/L) 3.7 3.9 Chloride (98 - 107 mmol/L) 116 H 112 H Carbon Dioxide (22 - 30 mmol/L) 26 28 Anion Gap (5 - 16) 5 5 BUN (7 - 17 mg/dL) 39 H 46 H Creatinine (0.5 - 1.0 mg/dL) 0.4 L 0.5 Estimated GFR (>60 ml/min) > 60 > 60 Glucose (65 - 99 mg/dL) 87 81 Calcium (8.4 - 10.2 mg/dL) 8.4 8.5 Phosphorus (2.5 - 4.5 mg/dL) 2.6 3.0 Magnesium (1.6 - 2.3 mg/dL) 2.1 2.2 Total Bilirubin (0.2 - 1.3 mg/dL) 0.5 0.5 AST (14 - 36 U/L) 332 H 400 H ALT (9 - 52 U/L) 378 H 426 H Albumin (3.5 - 5.0 g/dL) 2.6 L 2.7 L Hematology CBC w Diff NO MAN DIFF REQ NO MAN DIFF REQ WBC (4.8 - 10.8 /CUMM) 4.9 6.4 RBC (4.20 - 5.40 /CUMM) 3.02 L 3.33 L Hgb (12.0 - 16.0 G/DL) 10.2 L 11.3 L Hct (37 - 47 %) 30.0 L 33.3 L MCV (81.0 - 99.0 FL) 99.3 H 99.8 H MCH (27.0 - 31.0 PG) 33.8 H 33.9 H MCHC (33.0 - 37.0 G/DL) 34.0 33.9 RDW (11.5 - 14.5 %) 15.0 H 15.0 H Plt Count (130 - 400 /CUMM) 129 L 155 MPV (7.4 - 10.4 FL) 7.5 7.6 Gran % (42.2 - 75.2 %) 71.0 79.4 H Lymphocytes % (20.5 - 51.1 %) 25.2 17.4 L Monocytes % (1.7 - 9.3 %) 3.5 3.0 Eosinophils % (0 - 5 %) 0.1 0 Basophils % (0.0 - 2.0 %) 0.2 0.2 Absolute Granulocytes (1.4 - 6.5 /CUMM) 3.5 5.1 Absolute Lymphocytes (1.2 - 3.4 /CUMM) 1.2 1.1 L Absolute Monocytes (0.10 - 0.60 /CUMM) 0.2 0.2 Absolute Eosinophils (0.0 - 0.7 /CUMM) 0 0 Absolute Basophils (0.0 - 0.2 /CUMM) 0 0 /07 1357 Chemistry Troponin I Cancelled A/P; 82 y/o F with pmh sig for HTN (on no medications), dementia, urinary incontinance, depression, bedbound, non-verbal at baseline admitted with dehydration, decreased by mouth intake, some shortness of breath with possible aspiration pneumonia. Also has decubitus ulcers present on admission. Patient seen by wound care. Patient's son wanted to be present at the time off swallow reevaluation. We'll follow-up with the results. If patient fails then goals of care will need to be discussed with patient's son. For now he is not 100% sure what he wants to. Patient does have protein calorie malnutrition and is very cachectic. We'll continue the IV antibiotics for now. She is getting gentle IV hydration. We will arrange for a family meeting after swallow evaluation. DVT px; Lovenox.
[2017-11-18 08:00] VITALS: BP 124/68
--- NOTE | 2017-11-18 08:45 | Cons- Wound Care ---
General Information and HPI Consulting Request Date of Consult: 11/18/17 Requested By: Aundrea Chandler MD Reason for Consult: Multiple pressure injury ulcers present on admission History of Present Illness: Patient is an 82-year-old woman with advanced dementia found to have multiple pressure injury ulcers present on admission. Patient was felt to have aspiration pneumonia Allergies/Medications Allergies: Coded Allergies: [place] And Derivatives (MIGRAINES 03/14/16) Home Med List: Ascorbate Calcium (Vitamin C) (Unknown Strength) TABLET (Unknown Dose) PO DAILY SUPPLEMENT (Reported) Cefuroxime Axetil (Cefuroxime) 500 MG TABLET 1 TAB PO BID uti Cholecalciferol (Vitamin D3) (Vitamin D) (Unknown Strength) CAPSULE (Unknown Dose) PO DAILY SUPPLEMENT (Reported) Duloxetine HCl 60 MG CAPSULE.DR 1 CAP PO QPM MENTAL HEALTH (Reported) Magnesium Citrate (Citrate Of Magnesia) 300 ML SOLUTION 296 ML PO ONCE PRN CONSTIPATION Polyethylene Glycol 3350 (Miralax) 17 GRAM/DOSE POWDER 17 GM PO DAILY constipation mix with water, juice, soda, coffee or tea until stools soft and regular Quetiapine Fumarate 50 MG TABLET 1 TAB PO QPM SLEEP (Reported) Sumatriptan Succinate (Unknown Strength) TABLET (Unknown Dose) PO AD PRN MIGRAINES (Reported) Temazepam 30 MG CAPSULE 1 CAP PO QHS SLEEP (Reported) Tramadol HCl 50 MG TABLET 1-2 TAB PO QHS PAIN (Reported) Review of Systems Review of Systems: Obtainable Past History Travel History Traveled to [place] past 21 day No Medical History Blood Transfusion Hx: No Neurological: dementia, SUPRANUCLEAR PALSY EENT: NONE Cardiovascular: hypertension Respiratory: NONE Gastrointestinal: NONE Hepatic: NONE Renal: urinary incontinence Musculoskeletal: NONE Psychiatric: depression Endocrine: hyponatremia Blood Disorders: NONE Cancer(s): NONE Other Medical Hx: frequent falls, Contusion of Hip Surgical History Surgical History: knee replacement (r) Family History Relations & Conditions If Any: MOTHER Relation not specified for: Cancer of small intestine Psychosocial History Where Do You Live? Home Smoking Status: Unknown If Ever Smoked Exam & Diagnostic Data Vital Signs and I&O Vital Signs Result Date Time Pulse Ox 98 11/18 0600 B/P 128/74 11/18 0600 O2 Delivery Nasal Cannula 11/18 699 O2 Flow Rate 1.0L 11/18 699 Temp 97.0 03/08 0700 Pulse 65 11/18 0600 Resp 24 11/18 699 Intake & Output 11/18 0000 11/17 1600 11/18 0700 Intake Total 650 663 587 Output Total 275 230 200 Balance 375 433 387 Intake, IV 600 663 587 Intake, Oral 50 0 0 Number 1 3 Bowel Movements Output, Urine 275 230 200 Patient 75 lb 4.01 oz Weight Weight Bed scale Measurement Method There are bilateral greater trochanter areas of pressure injury ulceration. Left hip measures approximately 3 x 3 cm the right 2 x 2 centimeters. Over the right iliac crest is a small area of unstageable ulceration measuring approximately 2 x 1 cm. Over the coccyx is an area of stage I pressure injury ulceration measuring 3-4 x 3-4 cm. She appears to be malnourished Assessment/Plan Impression/Plan: 82-year-old woman who appears to be malnourished admitted with aspiration pneumonia in the setting of advanced dementia has multiple pressure injury ulcerations present on admission recommended continue DuoDERM avoid friction and shear offloading of these areas formal nutritional assessment Consult Acknowledgment - Thank you for your consult request.
[2017-11-18 16:00] VITALS: BP 130/80
[2017-11-18 20:00] VITALS: BP 140/90
--- NOTE | 2017-11-18 21:18 | Event Note ---
Event Note Event Note: Had discussion with pt's son, Luis while his girlfriend was in the room. We discussed that given patient's profoundly cachectic state, with advanced dementia and poor functional status pt would likely not benefit from CPR. After much contemplation, son has decided to make his mother DNR/DNI. Questions were solicited and answered
[2017-11-18 21:31] VITALS: BP 145/88
[2017-11-19 06:46] VITALS: BP 138/80
--- NOTE | 2017-11-19 07:18 | PN- Housestaff ---
Arron ÁLVAREZ,Yissel 11/19/17 0717: Subjective Follow-up For: Hypothermia Aspiration pneumonia Subjective: seen at bedside Remains at baseline. Review of Systems Constitutional: Reports: see HPI. Objective Last 24 Hrs of Vital Signs/I&O Vital Signs Date Time Temp Pulse Resp B/P B/P Pulse O2 O2 Flow FiO2 Mean Ox Delivery Rate 11/19 0646 97.1 67 20 138/80 96 Nasal 1.0L Cannula 11/19 0000 Nasal 1.0L Cannula 11/18 2131 97.4 73 18 145/88 99 11/18 2000 97.4 66 20 140/90 98 Nasal 1.0L Cannula 11/18 1600 97 Nasal 1.0L Cannula 11/18 1600 98.5 76 20 130/80 97 Nasal 1.0L Cannula 11/18 1324 97 Nasal 1.0L Cannula 11/18 0800 94 Nasal 1.0L Cannula 11/18 0800 97.6 68 20 124/68 94 Nasal 1.0L Cannula Intake & Output 11/19 0800 11/19 0000 11/18 1600 Intake Total 160 695 Output Total 350 150 200 Balance -350 10 495 Intake, IV 160 695 Intake, Oral 0 Number 0 Bowel Movements Output, Urine 350 150 200 Patient 37.705 kg Weight Physical Exam General Appearance: Alert, cachexic, moans Skin: No Rashes HEENT: Atraumatic Neck: Supple Cardiovascular: Normal S1, Normal S2 Lungs: Clear to Auscultation, Normal Air Movement Assessment/Plan Assessment: The patient is a 82-year-old female with past medical history of dementia, urinary incontinence, depression, she is bedbound nonverbal at baseline. She presented to [facility] for poor oral for past 2 days and she was reported to having coughing and choking episodes with feeding attempts. Patient has had no urine output no bowel movement for past few days. On presentation patient was found to have leukocytosis, with a CTA showing emphysematous changes with scattered airspace opacities throughout the lungs. Labs were also positive for elevated BUN and transaminitis She was intially admitted to general medicine and became hypothermic in ER was transferred to ICU for further management with snow desir. Overnight she improved and She is being treated and evaluated for following conditions #Aspiration pneumonia Patient presented with leukocytosis and CTA positive for patchy parenchymal airspace opacities at both lung bases. She was reportedly having coughing and choking episodes with feeding attempts and was being maintained on pured/baby floor. It is likely that patient might have aspirated -Continue IV Unasyn -Leukocytosis is trending down to normal improving 2/2 to abx vs dilution #Hypothermia Patient was transferred to ICU overnight for management of hypothermia, which has reolved She has not required snow hugger since arrival to ICU. Transfered back to floor. #Dehydration/cachexia/failure to thrive Patient has failed swallow evaluation and will be kept nothing by mouth. She is being fed baby food at home and is likely aspirating, her prognosis appears guarded Converted to comfort measures. Eventually wants to pursue home hospice. #Transaminitis Likely secondary to infectious process and dehydration -Improving Continue to monitor #Constipation -Bowel regemin #Buttock decubitus ulcers -wound cousult and wound care DVT prophylaxis with Lovenox Nothing by mouth continue D5 half normal saline Comfort measures Problem List: 1. Advanced dementia 2. Aspiration pneumonia 3. Dehydration 4. Hypothermia Pain Ratin Pain Location: n/a Pain Goal: Pain 4 or less Pain Plan: tylenol prn Tomorrow's Labs & Rationales: none Ramesh ÁLVAREZ,Aundrea 11/19/17 1047: Attending MD Review Statement Attending Statement Attending MD Statement: examined this patient, discuss w/resident/PA/LUMBER PRESS OPERATOR, agreed w/resident/PA/LUMBER PRESS OPERATOR, reviewed EMR data (avail), discussed with nursing, discussed with case mgmt, reviewed images, amended to note Attending Assessment/Plan: Patient seen and examined, remains nonverbal. She is very cachectic and has very advanced dementia. Vital Signs Date Time Temp Pulse Resp B/P B/P Pulse O2 O2 Flow FiO2 Mean Ox Delivery Rate 11/19 0646 97.1 67 20 138/80 96 Nasal 1.0L Cannula 11/19 0000 Nasal 1.0L Cannula 11/18 2131 97.4 73 18 145/88 99 11/18 2000 97.4 66 20 140/90 98 Nasal 1.0L Cannula 11/18 1600 97 Nasal 1.0L Cannula 11/18 1600 98.5 76 20 130/80 97 Nasal 1.0L Cannula 11/18 1324 97 Nasal 1.0L Cannula on exam; awake, non verbel. cv; s1,s2, rrr resp; decreased bs overall. abd; soft, nt. ext; no edema. Laboratory Tests 11/19 914 Chemistry Sodium (137 - 145 mmol/L) 139 Potassium (3.5 - 5.1 mmol/L) 3.5 Chloride (98 - 107 mmol/L) 109 H Carbon Dioxide (22 - 30 mmol/L) 26 Anion Gap (5 - 16) 4 L BUN (7 - 17 mg/dL) 31 H Creatinine (0.5 - 1.0 mg/dL) 0.4 L Estimated GFR (>60 ml/min) > 60 BUN/Creatinine Ratio (7 - 25 %) 77.5 H Hematology CBC w Diff NO MAN DIFF REQ WBC (4.8 - 10.8 /CUMM) 3.7 L RBC (4.20 - 5.40 /CUMM) 3.11 L Hgb (12.0 - 16.0 G/DL) 10.4 L Hct (37 - 47 %) 30.3 L MCV (81.0 - 99.0 FL) 97.5 MCH (27.0 - 31.0 PG) 33.4 H MCHC (33.0 - 37.0 G/DL) 34.3 RDW (11.5 - 14.5 %) 14.5 Plt Count (130 - 400 /CUMM) 123 L MPV (7.4 - 10.4 FL) 7.9 Gran % (42.2 - 75.2 %) 53.5 Lymphocytes % (20.5 - 51.1 %) 42.3 Monocytes % (1.7 - 9.3 %) 2.8 Eosinophils % (0 - 5 %) 0.3 Basophils % (0.0 - 2.0 %) 1.1 Absolute Granulocytes (1.4 - 6.5 /CUMM) 2.0 Absolute Lymphocytes (1.2 - 3.4 /CUMM) 1.5 Absolute Monocytes (0.10 - 0.60 /CUMM) 0.1 Absolute Eosinophils (0.0 - 0.7 /CUMM) 0 Absolute Basophils (0.0 - 0.2 /CUMM) 0 A/P; 82 y/o F with pmh sig for HTN (on no medications), dementia, urinary incontinance, depression, bedbound, non-verbal at baseline admitted with dehydration, decreased by mouth intake, some shortness of breath with possible aspiration pneumonia. Patient has severe protein calorie malnutrition. CODE STATUS was changed yesterday after family discussion to DNR/DNI. Patient had failed swallow evaluation. Tried calling patient's son today left a message. We need to have another family meeting or discussion in terms of goals of care. Son had mentioned that he would not want mother to get a feeding tube. Patient is not even able to swallow any of her medications. In that situation best option would be to make her comfortable and possibly consulting hospice. This will need to be discussed with patient's son. In the meantime patient is getting gentle IV hydration as well as IV antibiotics. Patient on Lovenox for DVT prophylaxis. Addendum: Lengthy discussion with patient's son. Explained to the son that patient has failed swallow evaluation 2 and that we have is option of making him comfort care/hospice or considering a feeding tube. He does not want feeding tube at all and he is willing to change CODE STATUS Comfort Care and consulting hospice. I have notified the case management.
[2017-11-19 09:35] LABS: ABSOLUTE BASOPHIL COUNT 0 /CUMM (0.0-0.2); ABSOLUTE EOSINOPHIL COUNT 0 /CUMM (0.0-0.7); ABSOLUTE LYMPH COUNT 1.5 /CUMM (1.2-3.4); ABSOLUTE MONOCYTE COUNT 0.1 /CUMM (0.10-0.60); BASOPHIL % 1.1 % (0.0-2.0); EOSINOPHIL % 0.3 % (0-5); GRANULOCYTE % 53.5 % (42.2-75.2); HEMATOCRIT 30.3 % (37-47); MEAN CORPUSCULAR HGB 33.4 PG (27.0-31.0); MEAN CORPUSCULAR HGB CONC 34.3 G/DL (33.0-37.0); MEAN CORPUSCULAR VOLUME 97.5 FL (81.0-99.0); MEAN PLATELET VOLUME 7.9 FL (7.4-10.4); PLATELET COUNT 123 /CUMM (130-400); RBC DISTRIBUTION WIDTH 14.5 % (11.5-14.5); RED BLOOD CELL CT 3.11 /CUMM (4.20-5.40); WHITE BLOOD CELL COUNT 3.7 /CUMM (4.8-10.8)
[2017-11-19 14:00] VITALS: BP 126/74
[2017-11-19 22:34] VITALS: BP 148/101
--- NOTE | 2017-11-20 00:28 | PN- Housestaff ---
See Addendum Subjective Follow-up For: Failure to thrive Comfort measures Subjective: seen at bedside remains at bedside Review of Systems Constitutional: Reports: see HPI. Comments: ROS negative except the above Objective Last 24 Hrs of Vital Signs/I&O Vital Signs Date Time Temp Pulse Resp B/P B/P Pulse O2 O2 Flow FiO2 Mean Ox Delivery Rate 11/19 2234 97.3 65 20 148/101 98 Nasal Cannula 11/19 1600 Nasal 1.0L Cannula 11/19 1400 95.1 72 20 126/74 96 Nasal 1.0L Cannula 11/19 0800 Nasal 1.0L Cannula 11/19 0646 97.1 67 20 138/80 96 Nasal 1.0L Cannula Intake & Output 11/20 0800 11/20 0000 11/19 1600 Intake Total 400 450 Output Total 100 400 Balance 300 50 Intake, IV 400 450 Number 2 Bowel Movements Output, Urine 100 400 Physical Exam General Appearance: Alert Skin: No Rashes Skin Temp/Moisture Exam: Warm/Dry HEENT: Atraumatic Neck: Supple Cardiovascular: Normal S1, Normal S2 Lungs: Clear to Auscultation, Normal Air Movement Abdomen: Normal Bowel Sounds Extremities: No Clubbing, No Cyanosis, No Edema Current Medications: Current Medications Sig/Lilliam Start time Last Medication Dose Route Stop Time Status Admin Ampicillin Sodium/ 1,500 MG Q12H 11/16 1200 AC 11/20 Sulbactam Sodium IV 0005 Sodium Chloride 100 ML Bisacodyl 10 MG Q12P PRN 11/16 1045 AC MA Dextrose 25 GM ONCE ONE 11/19 1845 DC 11/19 IV 11/19 1846 1855 Dextrose/Sodium 1,000 ML Q20H 11/19 1845 DC Chloride IV Dextrose/Sodium 1,000 ML Q20H 11/19 1445 AC 11/19 Chloride IV 1800 Dextrose/Sodium 1,000 ML Q13H 11/18 0930 DC 11/19 Chloride IV 0021 Duloxetine HCl 60 MG QPM 11/16 2200 AC 11/17 PO 2158 Enoxaparin Sodium 40 MG DAILY 11/16 1000 DC 11/19 SC 1010 Morphine Sulfate 1 MG Q6P PRN 11/19 1515 AC IV Quetiapine Fumarate 50 MG QPM 11/16 2200 AC 11/17 PO 2158 Senna/Docusate Sodium 1 TAB BID 11/16 1039 AC 11/17 PO 2158 Temazepam 30 MG AT BEDTIME PRN 11/16 0100 AC PO Assessment/Plan Assessment: The patient is a 82-year-old female with past medical history of dementia, urinary incontinence, depression, she is bedbound nonverbal at baseline. She presented to [facility] for poor oral for past 2 days and she was reported to having coughing and choking episodes with feeding attempts. Patient has had no urine output no bowel movement for past few days. On presentation patient was found to have leukocytosis, with a CTA showing emphysematous changes with scattered airspace opacities throughout the lungs. Labs were also positive for elevated BUN and transaminitis She was intially admitted to general medicine and became hypothermic in ER was transferred to ICU for further management with snow desir. Transferred to floor after temparature improved. She is getting treated for aspiration penumonia. After discussing with son she was made comfort measures yesterday. she is on D5NS for nutrition. Home hospice comes and evaluates patient today. Problem List: 1. Failure to thrive 2. Comfort measures only status Pain Ratin Pain Location: n/a Pain Goal: Pain 4 or less Pain Plan: morphine Tomorrow's Labs & Rationales: none
[2017-11-20 06:20] VITALS: BP 124/80
[2017-11-20 22:16] VITALS: BP 131/86
[2017-11-21 06:20] VITALS: BP 112/77
--- NOTE | 2017-11-21 08:29 | PN- Housestaff ---
Coco ÁLVAREZ,Marifer 11/21/17 0829: Subjective Follow-up For: Failure to thrive Subjective: Patient was seen and examined at bedside. She is lethargic. The patient is unable to answer any questions and continues to moan. Review of Systems Constitutional: Reports: no symptoms. Objective Last 24 Hrs of Vital Signs/I&O Vital Signs Date Time Temp Pulse Resp B/P B/P Pulse O2 O2 Flow FiO2 Mean Ox Delivery Rate 11/22 619 97.5 74 16 112/77 97 Nasal Cannula 11/21 0000 98 Nasal 1.0L Cannula 11/20 2216 97.4 68 18 131/86 98 Nasal Cannula Intake & Output 11/21 1600 11/21 0800 11/21 0000 Intake Total 400 150 Output Total 125 450 Balance 275 -300 Intake, IV 400 150 Intake, Oral 0 0 Number 1 2 1 Bowel Movements Output, Urine 125 450 Patient 90 lb 3 oz Weight Weight Bed scale Measurement Method Physical Exam General Appearance: Mild Distress, lethargic, Skin: No Rashes, No Breakdown Skin Temp/Moisture Exam: Warm/Dry Sepsis Skin Exam (color): Normal for Ethnicity HEENT: Atraumatic Cardiovascular: Normal S1, Normal S2, No Murmurs Lungs: Normal Air Movement Abdomen: Soft, No Tenderness Neurological: Normal Speech Extremities: No Edema Assessment/Plan Assessment: The patient is a 82-year-old female with past medical history of dementia, urinary incontinence, depression, she is bedbound nonverbal at baseline. Assessment: Hypothermia on admission - resolved Aspiration Pneumonia Plan: * Patient is comfort measures only * Hospice evaluation today. * Will increase morphine 1mg to q4p for breathing. * continue maintenance fluid * continue temazepam and seroquel. Problem List: 1. Comfort measures only status Pain Ratin Pain Location: none Pain Goal: Remain pain free Pain Plan: none Tomorrow's Labs & Rationales: none Sebastian Feldman 11/21/17 1230: Attending MD Review Statement Attending Statement Attending MD Statement: examined this patient, discuss w/resident/PA/MARKETING SUPPORT ASSISTANT, agreed w/resident/PA/MARKETING SUPPORT ASSISTANT, discussed with family, reviewed EMR data (avail), discussed with nursing, discussed with case mgmt, reviewed images, amended to note Attending Assessment/Plan: 82 y/o F with pmh sig for HTN (on no medications), dementia, urinary incontinance, depression, bedbound, non-verbal at baseline admitted with dehydration, decreased by mouth intake, some shortness of breath with possible aspiration pneumonia. Patient has severe protein calorie malnutrition. Primary team had lenghty discussion with family and agreed to comfort care and hospice as family did not want alternative means of nutrition. Possible hospice discharge. Case management aware. Had discussion with family again who wants to continue IVF. DNR/DNI.
[2017-11-21 14:39] VITALS: BP 100/55
[2017-11-21 22:27] VITALS: BP 118/77
[2017-11-22 06:20] VITALS: BP 108/72
--- NOTE | 2017-11-22 08:07 | PN- Housestaff ---
Arron ÁLVAREZ,Yissel 11/22/17 0806: Subjective Follow-up For: failure to thirive comfort measures awaiting home hospice Subjective: seen at bedside At baseline, Moaning in pain. Review of Systems Constitutional: Reports: see HPI. Objective Last 24 Hrs of Vital Signs/I&O Vital Signs Date Time Temp Pulse Resp B/P B/P Pulse O2 O2 Flow FiO2 Mean Ox Delivery Rate 11/23 619 97.6 69 20 108/72 96 Nasal Cannula 11/22 0406 97 Nasal 1.0L Cannula 11/22 040 97 Nasal 1.0L Cannula 11/217 97.3 72 16 118/77 75 Nasal Cannula 11/21 1439 96.8 72 18 100/55 95 Intake & Output 11/22 1600 11/22 0800 11/22 0000 Intake Total 500 Output Total 150 250 Balance 350 -250 Intake, IV 500 Number 1 Bowel Movements Output, Urine 150 250 Physical Exam General Appearance: Alert, Mild Distress, cachexic Skin: No Rashes, decubitus ulcers present HEENT: Atraumatic, PERRLA, EOMI Neck: Supple Cardiovascular: Normal S1, Normal S2 Lungs: Clear to Auscultation, Normal Air Movement Abdomen: Soft, No Tenderness Current Medications: Current Medications Sig/Lilliam Start time Last Medication Dose Route Stop Time Status Admin Bisacodyl 10 MG Q12P PRN 11/16 1045 AC NC Dextrose/Sodium 1,000 ML Q13H 11/21 2045 AC 11/21 Chloride IV 2308 Dextrose/Sodium 1,000 ML Q20H 11/19 1445 DC 11/21 Chloride IV 0528 Duloxetine HCl 60 MG QPM 11/16 2200 AC 11/17 PO 2158 Morphine Sulfate 4 MG .STK-MED ONE 11/22 0007 DC IM 11/22 0008 Morphine Sulfate 1 MG Q4P PRN 11/21 1245 AC 11/22 IV 0514 Morphine Sulfate 1 MG Q6P PRN 11/19 1515 DC 11/21 IV 0808 Quetiapine Fumarate 50 MG QPM 11/16 2200 AC 11/17 PO 2158 Senna/Docusate Sodium 1 TAB BID 11/16 1039 AC 11/17 PO 2158 Temazepam 30 MG AT BEDTIME PRN 11/16 0100 AC PO Assessment/Plan Assessment: The patient is a 82-year-old female with past medical history of dementia, urinary incontinence, depression, she is bedbound nonverbal at baseline. She was admitted with concerns of aspiration pneumonia, failure to thrive. Hospital course c/b Hypothermia requiring ICU transfer. After discussing goals of care several times, she was made DNR/DNI f/b comfort measures. Family is agreeable with home hospice care. currently awaiting placement. Problem List: 1. Failure to thrive 2. Comfort measures only status 3. Hypothermia 4. Aspiration pneumonia Pain Ratin Pain Location: Moaning, nonverbal Pain Goal: Pain 4 or less Pain Plan: IV morphine Tomorrow's Labs & Rationales: none - for comfort Aundrea Chandler MD 11/22/17 1047: Attending MD Review Statement Attending Statement Attending MD Statement: examined this patient, discuss w/resident/PA/MARKETING STRATEGY ANALYST, agreed w/resident/PA/MARKETING STRATEGY ANALYST, discussed with family, reviewed EMR data (avail), discussed with nursing, discussed with case mgmt, reviewed images, amended to note Attending Assessment/Plan: Patient seen and examined, continues remained nonverbal. As reported by nursing , now started to have periods of apnea. Over the weekend patient remained on IV fluids as per family's wishes. Vital Signs Date Time Temp Pulse Resp B/P B/P Pulse O2 O2 Flow FiO2 Mean Ox Delivery Rate 11/22 0620 97.6 69 20 108/72 96 Nasal Cannula 11/22 0406 97 Nasal 1.0L Cannula 11/22 0400 97 Nasal 1.0L Cannula 11/21 2227 97.3 72 16 118/77 75 Nasal Cannula 11/21 1439 96.8 72 18 100/55 95 on exam; lethargic, non verbel. cv; s1,s2, rrr, + murmur. resp; overall decreased. abd; soft, nt, bs+. ext; trace edema. no labs, A/P; 82 y/o F with pmh sig for HTN (on no medications), dementia, urinary incontinance, depression, bedbound, non-verbal at baseline admitted with dehydration, decreased by mouth intake, shortness of breath, aspiration pneumonia. Patient has severe protein calorie malnutrition. On November 19, family discussion was held with patient's son and he agreed to make mom comfort care as well as hospice was consulted. Over the weekend according to case management, discussions were held between patient's son and hospice nurse and he did not agree for discontinuing the IV hydration. Definite hospice care plan was not finalized. Today patient has some periods of apnea according to nursing. I have called patient's son who will be visiting mother shortly. We are going to have another family meeting so that we can discuss the goals of care and plan of care with the patient's son. Patient will benefit from hospice care. Most likely she will meet inpatient hospice criteria.
[2017-11-22 14:19] VITALS: BP 100/55
== END 2017-11-22 17:29 | disposition hospice, home (50) | DRG 177 ==
LOC: ERH 19:15 → 2NA 23:54 → CRI 23:54 → ERHI 23:54 → CANRESERV 11-16 09:35 → ENRESERV 11-16 09:35 → ERHI 11-16 11:31 → EDBEDREQ 11-16 16:32 → ENRESERV 11-16 17:33 → CRI 11-16 20:08 → 2NA 11-18 21:06
PROVIDERS: Internal Medicine; Pediatrics; Student in an Organized Health Care Education/Training Program
DX: J69.0 Pneumonitis due to inhalation of food and vomit (principal); E43 Unspecified severe protein-calorie malnutrition; L89.210 Pressure ulcer of right hip, unstageable; L89.151 Pressure ulcer of sacral region, stage 1; L89.220 Pressure ulcer of left hip, unstageable; T68.XXXA Hypothermia, initial encounter; E86.0 Dehydration; G23.1 Progressive supranuclear ophthalmoplegia [Steele-Richardson-Olszewski]; R64 Cachexia; E87.1 Hypo-osmolality and hyponatremia; Z68.1 Body mass index [BMI] 19.9 or less, adult; F03.90 Unspecified dementia, unspecified severity, without behavioral disturbance, psychotic disturbance, mood disturbance, and anxiety; R62.7 Adult failure to thrive; I10 Essential (primary) hypertension; R32 Unspecified urinary incontinence; F32.9 Major depressive disorder, single episode, unspecified; Z74.01 Bed confinement status; Z91.81 History of falling; Z96.651 Presence of right artificial knee joint; D72.829 Elevated white blood cell count, unspecified; K59.00 Constipation, unspecified; R74.0 Nonspecific elevation of levels of transaminase and lactic acid dehydrogenase [LDH]; R79.89 Other specified abnormal findings of blood chemistry; R68.0 Hypothermia, not associated with low environmental temperature; Z66 Do not resuscitate; Z51.5 Encounter for palliative care
CPT/HCPCS: 2NAP; 84133; 84300; CCU; ERO; 36415; 36592; 71045; 74177; 81003; 82436; 82570; 87040; 87086; 87804; 87804-59; 93005; 93010; J0131; J1650; J7042

== ENCOUNTER 2017-11-22 16:54 | Inpatient (IN) | payer OTHER ==
[2017-11-22 14:19] VITALS: BP 100/55
[~2017-11-22 16:54] MED LIST changes: +QUETIAPINE FUMA50 M1 PO
--- NOTE | 2017-11-22 18:05 | Admission Certification ---
Admission Certification Certification Statement - As attending physician, I certify that at the time of - admission, based on clinical presentation, severity of - symptoms, need for further diagnostic testing and - therapeutic interventions, and risk of adverse outcomes - without in-hospital treatment, in my clinical assessment, - this patient requires an acute hospital stay for a minimum - of two nights or longer. I have also considered psychsocial - factors such as support system, advanced age, financial - issues, cognitive issues, and failed out-patient treatments, - past re-admission history, safety of patient, and lack of - compliance as applicable. Specific rationale supporting this admission is: Patient being admitted to Hospice Service for inpatient Hospice Care. Needs IV Morphine, Ativan, Glycopyrolate, etc as per Comfort Measures.
--- NOTE | 2017-11-22 18:21 | History & Physical ---
General Information and HPI Chief Complaint: "Failure To Thrive", aspiration pneumonia, dementia, respiratory failure... Source of Information: old records Exam Limitations: unable to give history History of Present Illness: The patient is an 82 yo female with h/o dementia, COPD, urinary incontinence, and depression who is bedbound and non-verbal at baseline who was originally admitted to [facility] in ICU with hypothermia and placed in snow hugger. She was noted to be choking and poor po intake x 2 days. Was found to be aspirating. CTA showed air space opacities and she was initially treated with IV Unasyn for aspiration pneumonia. She failed swallow evaluation x 2 and was not thriving. After family discussions she was initially made DNR/DNI and this afternoon converted to inpatient Hospice Care. Allergies/Medications Allergies: Coded Allergies: [place] And Derivatives (MIGRAINES 03/14/16) Past History Medical History Neurological: dementia, SUPRANUCLEAR PALSY EENT: NONE Cardiovascular: hypertension Respiratory: NONE Gastrointestinal: NONE Hepatic: NONE Renal: urinary incontinence Musculoskeletal: NONE Psychiatric: depression Endocrine: hyponatremia Blood Disorders: NONE Cancer(s): NONE Other Medical Hx: frequent falls, Contusion of Hip History of MRSA: Yes History of VRE: No History of CDIFF: No Isolation History: Contact Influenza Vaccine: 07/14/16 Tetanus Vaccine: 05/28/12 Surgical History Surgical History: unobtainable, knee replacement (r) Past Family/Social History Family History: Non-relevant. Psychosocial History: Dementia progressive. Review of Systems Review of Systems Constitutional: Reports: malaise, weakness. EENTM: Denies: no symptoms. Cardiovascular: Denies: no symptoms. Respiratory: Reports: cough, short of breath. GI: Denies: no symptoms. Musculoskeletal: Denies: no symptoms. Skin: Denies: no symptoms. Neurological/Psychological: Reports: dementia. Exam & Diagnostic Data Last 24 Hrs of Vital Signs/I&O T 97.6, P 69, R 20, BP 108/72, PO 96% NC 1 L Physical Exam General Appearance No Acute Distress, SOMNOLENT Skin No Rashes, No Significant Lesion HEENT Atraumatic, PERRLA, DRY MUCOUS MEMBRANES Neck No JVD, No LAD Cardiovascular Regular Rate, Normal S1, Normal S2 Lungs Clear to Auscultation (DIMINISHED BREATH SOUNDS), Normal Air Movement Abdomen Soft, No Tenderness Neurological MINIMALLY RESPONSIVE AT TIME OF MY EXAM Extremities No Edema, PULSES NOT PALPABLE LE Assessment/Plan Assessment: Impression/Plan: #Failure To Thrive- as per inpatient notes, the patient's condition has continued to deteriorate. With advanced and progressive dimentia, unable to take po w/o aspiration, etc. family elected Hospice Care. Plan: Will admit to inpatient Hospice care. IV Morphine, Ativan, etc. as per Hospice protocol. #Aspiration Pneumonia- was on IV Unasyn. Plan: Discontinue Unasyn. Rectal Tylenol as needed. #Hypothermia- was on snow hugger in ICU. Plan: Will follow off of snow hugger. Plan: As above.
[2017-11-23 06:51] VITALS: BP 100/54
--- NOTE | 2017-11-23 10:50 | PN- Att Addend ---
Attending Addendum Attending Brief Note Patient seen and examined, she is nonverbal. She was mouning this morning. Vital Signs Date Time Temp Pulse Resp B/P B/P Pulse O2 O2 Flow FiO2 Mean Ox Delivery Rate 11/23 0651 98.5 78 18 100/54 92 Nasal 0.5L Cannula 11/23 0000 Nasal 1.0L Cannula 11/22 1730 Nasal 2.0L Cannula 11/22 1419 98.4 60 16 100/55 94 Nasal 2.0L Cannula on exam; awake, non verbel. Was mouning this am. cv; s1,s2, + murmur. resp; overall decreased bs. abd; soft ext; no edema no labs. A/P; 82 y/o F admitted to hospice with severe advanced dementia, aspiration pna, failed swallow eval. Currently patient getting Ativan and morphine when necessary. I will tell her nurse to give her the necessary medications. We will continue the symptomatic management for hospice care.
--- NOTE | 2017-11-24 10:22 | Discharge Summary ---
Visit Information Visit Dates Admission Date: 11/22/17 Discharge Date: 11/23/17 Hospital Course Course Attending Physician: Aundrea Chandler MD Primary Care Physician: Ryan Khoury MD Hospital Course: 82-year-old female with past history significant for advanced dementia, depression who was originally admitted to medicine floor with aspiration pneumonia and advanced dementia. Patient was treated with antibiotics. She had a swallow eval done which she failed twice. Patient also had severe protein calorie malnutrition and cachexia. She was nonverbal and she had been taken care of at home by her son. She was like this from last approximately 5 years according to the information that was provided by her son. Due to her declining condition, failed swallow eval, very poor quality of life discussions were made between patient's family and the medical team. Patient's son did not want her mother to get the feeding tube. Patient was converted to comfort care and hospice was consulted. Hospice team saw the patient and patient was converted to inpatient hospice after agreement between all parties. Patient on . Family was notified. Allergies: Coded Allergies: [place] And Derivatives (MIGRAINES 03/14/16) Disposition Summary Disposition Principal Diagnosis: Aspiration pneumonia. Severe advanced dementia. Additional Diagnosis: COPD Discharge Disposition: Discharge Instructions General Discharge Information Code Status: Hospice Patient's Diet: Patient's Activity: Follow-Up Instructions/Appts: Copies To: Peng ÁLVAREZ,Ryan Membreno Attending MD Review Statement Documenting Attending: Aundrea Chandler MD
== END 2017-11-23 16:12 | disposition expired | DRG 178 ==
LOC: 2NB 16:54 → 2NA 17:29
DX: J69.0 Pneumonitis due to inhalation of food and vomit (principal); Z51.5 Encounter for palliative care; G23.1 Progressive supranuclear ophthalmoplegia [Steele-Richardson-Olszewski]; F03.90 Unspecified dementia, unspecified severity, without behavioral disturbance, psychotic disturbance, mood disturbance, and anxiety; J44.9 Chronic obstructive pulmonary disease, unspecified; F32.9 Major depressive disorder, single episode, unspecified; R32 Unspecified urinary incontinence; Z74.01 Bed confinement status; R62.7 Adult failure to thrive
CPT/HCPCS: 2NAP